=== PATIENT | male | born 1950 | race Caucasian/White ===

== ENCOUNTER → 2018-04-26 08:33 | Outpatient (CLI) | payer BC, MEDICARE, SELFPAY ==
[2018-04-27 18:06] LABS: PSA, Free 5.02 ng/mL; Prostate Specific Ag 35.7 ng/mL (0.0-4.0)
== END ==
PROVIDERS: Visit Provider Family Medicine
DX: Z85.46 Personal history of malignant neoplasm of prostate (principal); Z12.5 Encounter for screening for malignant neoplasm of prostate
CPT/HCPCS: 36415; 84153; 84154

== ENCOUNTER → 2018-08-08 10:22 | Outpatient (CLI) | payer MEDICARE, SELFPAY ==
--- NOTE | 2018-08-08 10:37 | XR_ITS ---
EXAM: XR cervical spine 5V HISTORY: ITS.REASON: CERVICALGIA ORDERING PHYSICIAN: Lucia Payan PATIENT AGE: 68 years COMPARISON: None FINDINGS: Normal alignment. No fracture or dislocation. Degenerative disc disease is present at C5-C6 and C6-C7. There is mild foraminal narrowing C5-C6 on the left with mild uncovertebral hypertrophy. No prevertebral soft tissue swelling or other significant anomaly. IMPRESSION: Degenerative disc disease C5-C6 and C6-C7 with left-sided foraminal narrowing at C5-C6
--- NOTE | 2018-08-08 10:37 | XR_ITS ---
XR ribs RT min 3V w CXR1V HISTORY: ITS.REASON: RT RIB PAIN ORDERING PHYSICIAN: Lucia Payan PATIENT AGE: 68 years Comparison: None FINDINGS: A frontal view of the chest shows no acute finding. There is some increased density over the anterior aspect of the right fourth rib. Could be due to a healing fracture versus sclerotic rib lesion. No displaced fractures are evident. No other significant anomalies are apparent. IMPRESSION: Increased density over the right fourth rib anteriorly which could be due to healing fracture or sclerotic lesion of the rib. Consider CT for further evaluation.
[2018-08-08 11:35] LABS: Basophils % 0.2 % (0.1-2.0); Eosinophils % 0.5 % (0.1-12.0); Hematocrit 39.6 % (42.0-52.0); Hemoglobin 12.7 g/dL (14.1-18.0); Lymphocytes # 0.9 K/mm3 (0.7-4.5); Lymphocytes % 15.3 % (10-50); Mean Corpuscular HGB Conc 32.1 g/dL (31.8-35.4); Mean Corpuscular Hemoglobin 30.2 pg (27.0-31.2); Mean Platelet Volume 7.1 fl (7.4-10.4); Monocytes # 0.4 K/mm3 (0.1-1.0); Monocytes % 7.1 % (1.7-9.3); Neutrophils # 4.4 K/mm3 (1.8-7.8); Neutrophils % 76.9 % (37.0-80.0); Platelet Count 293 K/mm3 (142-424); Red Blood Count 4.21 M/mm3 (4.60-6.20); Red Cell Distribution Width 14.2 % (11.5-17.5); White Blood Count 5.7 K/mm3 (4.8-10.8)
[2018-08-08 13:12] LABS: Alanine Aminotransferase 19 U/L (12-78); Albumin Level 3.1 gm/dL (3.4-5.0); Alkaline Phosphatase 317 U/L (46-116); Aspartate Amino Transferase 26 U/L (15-37); Bilirubin,Direct 0.2 mg/dL (0.0-0.2); Bilirubin,Indirect 0.3 mg/dL (0.0-0.9); Bilirubin,Total 0.5 mg/dL (0.2-1.0); Total Protein,Serum 6.6 gm/dL (6.4-8.2)
== END ==
LOC: LAB 10:23 → RAD 10:35
PROVIDERS: PCP Nurse Practitioner Family; Visit Provider Nurse Practitioner Family
DX: R74.8 Abnormal levels of other serum enzymes (principal); M54.2 Cervicalgia; M43.6 Torticollis; R07.81 Pleurodynia
CPT/HCPCS: 36415; 71101; 72050; 80076; 85025

== ENCOUNTER → 2018-08-16 09:00 | Outpatient (CLI) | payer MEDICARE, SELFPAY ==
[2018-08-16 09:18] LABS: Blood Urea Nitrogen 15 mg/dL (7-18); Creatinine,Serum 0.64 mg/dL (0.70-1.30); Estimated Glomerular Filt Rate 125 ml/min (>60); GFR (African American) 151 ML/MIN (>60)
--- NOTE | 2018-08-16 09:28 | CT_ITS ---
CT chest wo/w con INDICATION: Right anterior rib pain for 3 weeks, question abnormal right fourth rib on recent plain films ITS.REASON: RIB LESION ORDERING PHYSICIAN: Francois Aguilar MD PATIENT AGE: 68 years COMPARISON: Rt. Ribs 08-08-2018 TECHNIQUE: Axial images obtained with sagittal and coronal reformats. All CT scans at the facility use one or more dose reduction, viz: automated exposure control, ma/kV adjustment per patient size (including targeted exams where dose is matched to indication, i.e. head), or iterative reconstruction technique. FINDINGS: Initially noncontrast scanning was performed showing mild subtle sclerotic change of the anterior aspect of the right fourth rib with some tiny interior cystic components. There may be some subtle expansion of this portion of the rib. Remaining ribs appear intact. There are few scattered areas of post inflammatory scarring in both upper lobes. Cardiac size is normal. There is no abnormal superior mediastinal or hilar lymphadenopathy. There is no pleural fluid. Bone windows multiple combines cystic and sclerotic foci within the thoracic vertebrae. T12 and T8 almost diffuse involvement. T5 and T6 show cystic and sclerotic foci. There is no paraspinal mass. IMPRESSION: Curious findings involving the right fourth rib anteriorly and multiple thoracic vertebrae and fibrous dysplasia is a consideration but somewhat unusual Paget's disease could give this appearance as well. Suggest alkaline phosphatase level be checked along with follow-up bone scan for additional evaluation
== END ==
PROVIDERS: Visit Provider Family Medicine
DX: R07.81 Pleurodynia (principal)
CPT/HCPCS: 36415; 71270; 82565; 84520; Q9967

== ENCOUNTER → 2018-08-27 09:12 | Outpatient (CLI) | payer MEDICARE, SELFPAY ==
--- NOTE | 2018-08-27 | XR_ITS ---
XR shoulder LT min 2V HISTORY: Metastatic disease, lesion of the left humeral neck on bone scan. ITS.REASON: HOT SPOT ON BONE SCAN ORDERING PHYSICIAN: Lucia Payan PATIENT AGE: 68 years Comparison: None FINDINGS: Left shoulder radiograph performed to assess for any areas that may be predisposed to pathological fracture. There is vague decreased density involving the proximal aspect of the humerus corresponding to increased activity on the bone scan consistent with a lytic lesion measuring 2.3 x 2.8 cm. There are osteoarthritic changes of the acromioclavicular joint. IMPRESSION: Vague lytic lesion of the proximal metaphysis of the left humerus at 2.8 x 2.3 cm
--- NOTE | 2018-08-27 | XR_ITS ---
XR shoulder RT min 2V HISTORY: Abnormal bone scan showing focal increased activity in the humeral neck ITS.REASON: HOT SPOT ON BONE SCAN ORDERING PHYSICIAN: Lucia Payan PATIENT AGE: 68 years Comparison: None FINDINGS: There are mild osteoarthritic changes of the glenohumeral joint. A small well-circumscribed lucency is present in the humeral head at 6 mm. The abnormal activity on the bone scan is in the scapula and also in the neck of the humerus. No significant lytic lesions evident at these areas. No suspected areas of eminent pathologic fracture. IMPRESSION: Mild osteoarthritic changes of the acromioclavicular joint and glenohumeral joint with no radiographic evidence of lytic lesions or eminent pathological fractures of the humeral neck
--- NOTE | 2018-08-27 09:21 | NM_ITS ---
NM bone scan whole body CLINICAL INDICATION: Rib and spine lesions on recent chest CT, history of prostate cancer, low back pain ITS.REASON: RIB LESION ORDERING PHYSICIAN: Lucia Payan PATIENT AGE: 68 years Comparison: 08/16/2018 DOSE: 25.7 mCi technetium MDP FINDINGS: Innumerable foci of increased activity are present involving the ribs, thoracic, cervical, and lumbar spine, pelvis on both sides, proximal humeri, sternum, skull, mandible, and proximal femurs and mid shaft right femur and system with diffuse skeletal metastatic disease. IMPRESSION: Diffuse skeletal metastasis
== END ==
PROVIDERS: PCP Nurse Practitioner Family; Visit Provider Nurse Practitioner Family
DX: M89.9 Disorder of bone, unspecified (principal)
CPT/HCPCS: 73030; 78306; A9503

== ENCOUNTER → 2018-09-02 15:00 | Outpatient (CLI) | payer MEDICARE, SELFPAY ==
[2018-09-02 16:54] LABS: Blood Urea Nitrogen 10 mg/dL (7-18); Creatinine,Serum 0.61 mg/dL (0.70-1.30); Estimated Glomerular Filt Rate 132 ml/min (>60); GFR (African American) 160 ML/MIN (>60)
== END ==
PROVIDERS: Visit Provider Nurse Practitioner Family
DX: R74.8 Abnormal levels of other serum enzymes (principal); I10 Essential (primary) hypertension
CPT/HCPCS: 36415; 82565; 84520

== ENCOUNTER → 2018-09-03 08:47 | Outpatient (CLI) | payer MEDICARE, SELFPAY ==
--- NOTE | 2018-09-03 08:53 | CT_ITS ---
CT abdomen pelvis w con CLINICAL INDICATION: Elevated alkaline phosphatase, right-sided rib pain, skeletal metastasis noted on recent bone scan ITS.REASON: RT SIDE RIB PAIN, ELEVATED ALKALINE PHOSPHATASE LEVEL ORDERING PHYSICIAN: Lucia Payan PATIENT AGE: 68 years COMPARISON: None TECHNIQUE: Axial images obtained with sagittal and coronal reformats. All CT scans at the facility use one or more dose reduction, viz: automated exposure control, ma/kV adjustment per patient size (including targeted exams where dose is matched to indication, i.e. head), or iterative reconstruction technique. PROCEDURE: Oral Contrast: Redicat IV Contrast: 75 mL of Isovue-370. FINDINGS: There are faint nodular opacities in the lower lobes similar to the previous CT scan of the chest of 08/16/2018 which are nonspecific. The liver, gallbladder, spleen, adrenal glands, and pancreas have an unremarkable appearance. There is thickening of the wall stomach at the fundal area. This is felt to be due to nondistention not having a similar appearance on 08/16/2018 No renal mass, renal calculus, or ureteral calculus. No hydronephrosis. No evidence of appendicitis, intestinal obstruction, free air, or diverticulitis. Urinary bladder collapsed with somewhat thickened wall which may be due to the collapsed state. No pelvic mass or abnormal fluid collection is evident. There is a diffuse mottled appearance of the ilium on both sides superiorly left more extensive than the right. This also involves the L1 and L2 vertebral body and to a lesser degree the L3 vertebral body with a Schmorl's node along the superior endplate of L3. These findings are consistent with metastatic disease. The bone scan findings show more severe involvement than the CT findings of multiple bony structures. IMPRESSION: 1. Widespread bony metastasis which have a mixed sclerotic and lytic appearance more prominent on the bone scan. 2. Otherwise negative CT abdomen. No liver renal or adrenal lesions. No retroperitoneal or pelvic adenopathy
== END ==
PROVIDERS: PCP Nurse Practitioner Family; Visit Provider Nurse Practitioner Family
DX: R07.81 Pleurodynia (principal); R74.8 Abnormal levels of other serum enzymes
CPT/HCPCS: 74177; Q9967

== ENCOUNTER 2018-12-06 01:46 | Observation (INO) ==
[2018-12-06 02:04] LABS: Basophils % 0.2 % (0.1-2.0); Eosinophils # 0.1 K/mm3 (0.0-0.4); Eosinophils % 1.4 % (0.1-12.0); Hematocrit 31.8 % (42.0-52.0); Hemoglobin 10.3 g/dL (14.1-18.0); Lymphocytes # 0.9 K/mm3 (0.7-4.5); Lymphocytes % 15.1 % (10-50); Mean Corpuscular HGB Conc 32.4 g/dL (31.8-35.4); Mean Corpuscular Hemoglobin 29.4 pg (27.0-31.2); Mean Corpuscular Volume 90.8 fl (80-94); Mean Platelet Volume 6.5 fl (7.4-10.4); Monocytes # 0.4 K/mm3 (0.1-1.0); Monocytes % 6.8 % (1.7-9.3); Neutrophils # 4.3 K/mm3 (1.8-7.8); Neutrophils % 76.5 % (37.0-80.0); Platelet Count 333 K/mm3 (142-424); Red Cell Distribution Width 17.9 % (11.5-17.5); White Blood Count 5.7 K/mm3 (4.8-10.8)
[2018-12-06 02:18] LABS: Anion Gap 15.8 mEq/L (5-15); Blood Urea Nitrogen 15 mg/dL (7-18); Calcium 9.3 mg/dL (8.5-10.1); Carbon Dioxide 27 mmol/L (21.0-32.0); Chloride 96 mmol/L (98-107); Glucose 105 mg/dL (74-106); Potassium 3.8 mmoL/L (3.5-5.1); Sodium 135 mmol/L (136-145)
--- NOTE | 2018-12-06 02:21 | Emergency Department Note ---
ED Disposition Clinical Impression: Prostate cancer metastatic to bone Chest pain Qualifiers: Chest pain type: precordial pain Qualified Code(s): R07.2 - Precordial pain Fracture of rib Qualifiers: Encounter type: initial encounter Rib fracture type: single rib Fracture type: closed Laterality: left Qualified Code(s): S22.32XA - Fracture of one rib, left side, initial encounter for closed fracture Disposition: Admitted as Observation Condition on Discharge: Fair Referrals: Provider,Referral, [Referring] - - Critical Care Critical Care Time: No Attestation: On 12/06/18, the high probability of a clinically significant, sudden or life threatening deterioration of the following system(s) required my full and direct attention, intervention and personal management. The time I documented below is in addition to time spent performing reported procedures but includes the following listed in this critical care notation. Medical Decision Making - Medical Records Medical records reviewed: Yes: I reviewed the patient's medical records. - Syed Inquiry Pt receiving controlled substance: No Vital Signs: 12/06/18 01:47 12/06/18 02:16 12/06/18 03:17 Temperature 98 F Temperature Source Oral Pulse Rate [Right Radial] 85 84 78 Respiratory Rate 18 16 Blood Pressure [Right Arm] 109/69 L 94/57 L 89/53 L Blood Pressure Mean [Right Arm] 82 69 65 Blood Pressure Position [Right Arm] Sitting 02 Sat by Pulse Oximetry 98 100 98 Oxygen Delivery Method Room Air Nasal Cannula Room Air Oxygen Flow Rate (LPM) 2 - Lab Data Lab results reviewed: Yes: I reviewed the patient's lab results. Lab Results 12/06/18 01:52: WBC 5.7, RBC 3.50 L, Hgb 10.3 L, Hct 31.8 L, MCV 90.8, MCH 29.4, MCHC 32.4, RDW 17.9 H, Plt Count 333, MPV 6.5 L, Neut % (Auto) 76.5, Lymph % (Auto) 15.1, [place] % (Auto) 6.8, Eos % (Auto) 1.4, Baso % (Auto) 0.2, Neut # (Auto) 4.3, Lymph # (Auto) 0.9, [place] # (Auto) 0.4, Eos # (Auto) 0.1, Baso # (Auto) 0.0 12/06/18 01:52: Sodium 135 L, Potassium 3.8, Chloride 96 L, Carbon Dioxide 27, Anion Gap 15.8 H, BUN 15, Creatinine 0.58 L, Estimated Creat Clear 55, Estimated GFR 140, Est GFR ( Amer) 169, Glucose 105, Calcium 9.3, Troponin I < 0.02 Result diagrams: 12/06/18 01:52 12/06/18 01:52 Orders (Tests/Meds): ED MEDICATIONS Generic Name Dose Route Start Last Admin Trade Name Freq PRN Reason Stop Dose Admin Sodium Chloride 1,000 mls @ 999 mls/hr 12/06/18 02:30 12/06/18 03:17 Sod Chlor 0.9% 1000ml Bag IV 12/06/18 03:30 999 mls/hr .Q1H1M LANDON Administration Sodium Chloride 10 ml 12/06/18 01:53 Saline Flush 10ml Syringe IV 01/05/19 01:52 NEEDED PRN Maintain IV Site Discontinued Medications Generic Name Dose Route Start Last Admin Trade Name Freq PRN Reason Stop Dose Admin Aspirin 324 mg 12/06/18 01:53 12/06/18 01:58 Aspirin 81mg Chewable Tablet PO 12/06/18 01:54 324 mg ONCE ONE Administration Ioversol 70 ml 12/06/18 03:26 12/06/18 03:28 Rad-Optiray 350 100ml Vial IV 12/06/18 03:27 70 ml ONCE ONE Administration Sodium Chloride 10 ml 12/06/18 03:26 12/06/18 03:28 Rad-Saline Flush 10ml Syringe IV 12/06/18 03:27 10 ml ONCE ONE Administration Sodium Chloride 40 ml 12/06/18 03:26 12/06/18 03:28 Rad-Ns 50ml Vial IV 12/06/18 03:27 40 ml ONCE ONE Administration ORDERS Category Date Time Status CTA Chest [CT angio chest] Stat Cat Scan 12/06/18 02:20 Taken XR chest portable Stat Exams 12/06/18 01:53 Taken - Radiology Data #1 Image(s): Chest Image Reviewed: Yes I reviewed the patient's radiology image Preliminary Findings: Abnormal (see report) - CT Data CT Scan: Chest Time Received: 03:[address] Reviewed: Yes: I have viewed the radiologist's interpretation Preliminary Findings: Abnormal (no pul emboli) - ECG Data Tracing #1 Normal Sinus Rhythm: Yes Ischemic changes: non-specific ST-T wave changes - Physician Consults Physician Consulted: genevieve Reason -: Admission Chest Pain HPI - General Chief Complaint: Chest Pain Stated Complaint: Chest Pain Time Seen by Provider: 12/06/18 01:50 Mode of Arrival: Ambulatory Limitations: No Limitations Description of Symptoms (Recalled from ER Triage Doc. by RN): pt c/o chest pain that starte approx 20 mins prior to arrival , reports he was "almost asleep when he developed a sharp pain in the left side of his chest" that has not subsided, reports associated shortness of breath, reports that it "hurts to breath deep" - History of Present Illness HPI narrative: sudden onset of lt chest pain assoc with sob - hx of met prostate cancer - wells score -4 MD complaint: chest pain indicative of cardiac Onset (ago): hour(s) Duration: constant Activity at onset: during rest, awoke with symptoms Pain location: left chest Severity: moderate Risk Factors for CAD: Family Hx of CAD Treatments prior to or on arrival for Cardiac Chest Pain: none - SOUTH Score for Non-Stemi Age of Patient: 60-69 years old Heart Rate: 70-89 bpm Systolic Blood Pressure: 100-119 mmHg Serum Creatinine: 0.40-0.79 mg/dl CHF [place] Class: I-No CHF Other Risk Factors: None Non-Stemi Risk Score: 114 - Related Data Home Medications Medication Instructions Recorded Confirmed Enoxaparin Sodium [Lovenox 100 mg SQ DAILY 12/06/18 12/06/18 100mg/mL syringe] Tramadol HCl [Tramadol 50mg 50 mg PO Q6 PRN 12/06/18 12/06/18 Tab] Allergies Allergy/AdvReac Type Severity Reaction Status Date / Time No Known Allergies Allergy Verified 12/06/18 01:54 [facility] History - Hepatitis A Screen Drug use history?: No High risk sexual behaviors?: No History of sexually transmitted infection?: No Currently employed?: No Childcare worker?: No Do you have indoor plumbing?: Yes Do you have electricity?: Yes Attestation statement:: This patient has been screened for Hepatitis A risk factors. I have reviewed the patient's past medical history: Yes - Social History Alcohol Intake: never Occupational Status: other - Psychiatric History Expresses thoughts of harming self/others: None Suicide Plan Description: No Plan ROS Obtained: Yes All systems reviewed & no additional complaints - Constitutional Constitutional: Denies fever(s), Reports weakness - Eyes Eyes: Denies change in vision - ENT Ears, Nose, Mouth, and Throat: Denies sore throat - Cardiovascular Cardiovascular: Reports chest pain, Reports dyspnea - Respiratory Respiratory: No cough, Yes dyspnea, No coughing up blood - Gastrointestinal Gastrointestingal: Denies: abdominal pain - Genitourinary Male Genitourinary: Denies hematuria - Musculoskeletal Musculoskeletal: Reports joint pain, Denies joint swelling - Integumentary/Breasts Skin/Breast: Denies rash - Neurologic Neurologic: Denies seizure-like activity Physical Exam - General General appearance: in no apparent distress, cachectic - Head Head exam: normocephalic - Eye Eye exam: Present: PERRL, EOMI. Absent: scleral icterus - ENT ENT exam: Present: mucous membranes dry - Neck Neck exam: Present: trachea midline - Respiratory Respiratory exam: Present: other (dec bs bilat). Absent: respiratory distress - Cardiovascular Cardiovascular exam: Present: regular rate, systolic murmur, +S4 - Abdominal Exam Abdominal exam: Present: soft - Extremities Exam Extremities exam: Absent: calf tenderness - Neurological Exam Neurological exam: Present: alert, oriented X3, CN II-XII intact - Psychiatric Psychiatric exam: Present: normal affect - Skin Skin exam: Absent: rash
--- NOTE | 2018-12-06 07:25 | H&P/Discharge Summary ---
General - General Admission date:: 12/06/18 Discharge date: 12/06/18 *Admission Date: 12/06/18 *Chief complaint: Left-sided chest pain *History of present illness: 68-year-old male with metastatic prostate cancer presented to the emergency department after developing left-sided burning chest discomfort yesterday evening. She admits he has been coughing quite a bit over the last 3-4 weeks. He denies any single episode of cough triggering his pain. However once his pain began he could not get comfortable. Pain would worsen with deep breathing, cough, movements. When pain was unrelenting he presented to the emergency department. In the ER there was concern that he had pulmonary embolism. First troponin was negative. Chest CT showed multiple areas within the lung that could be metastatic lesions versus an infectious process. She was admitted for rule out of DC [facility] History I have reviewed the patient's past medical history: Yes Medical History: Reports:: Cancer (Prostate cancer with metastases to bone and likely lung) Denies:: Diabetes Mellitus Type 1, Diabetes Mellitus Type 2, MRSA *Have you ever received a pneumonia vaccine?: No *Have you received a flu vaccine this season?: No Other Surgeries: Yes: Colonoscopy Amputation: No - *Social History Educational Level: Attended High School Alcohol Intake: never *Occupational Status:: other Housing: house *Travel in the last 8 weeks: None - Psychiatric History Expresses thoughts of harming self/others: None Suicide Plan Description: No Plan Family Hx:: Non-contributory Review of Systems - Review of Systems Review of systems:: pertinent systems reviewed and negative unless documented below - Constitutional Reports anorexia, Reports lack of energy, Denies body ache(s), Denies chills, Denies fever(s) - *Cardiovascular Reports chest pain (Musculoskeletal in nature) - *Respiratory Reports cough, Denies change in phlegm color, Denies chest congestion, Denies shortness of breath - *Neurologic Reports weakness, Denies seizure-like activity Exam Vital signs and Labs for Last 24 Hours: Temp Pulse Resp BP Pulse Ox 98.7 F 70 16 100/57 L 98 12/06/18 04:20 12/06/18 04:47 12/06/18 04:20 12/06/18 04:20 12/06/18 04:20 Laboratory Results - last 24 hr 12/06/18 01:52: WBC 5.7, RBC 3.50 L, Hgb 10.3 L, Hct 31.8 L, MCV 90.8, MCH 29.4, MCHC 32.4, RDW 17.9 H, Plt Count 333, MPV 6.5 L, Neut % (Auto) 76.5, Lymph % (Auto) 15.1, [place] % (Auto) 6.8, Eos % (Auto) 1.4, Baso % (Auto) 0.2, Neut # (Auto) 4.3, Lymph # (Auto) 0.9, [place] # (Auto) 0.4, Eos # (Auto) 0.1, Baso # (Auto) 0.0 12/06/18 01:52: Sodium 135 L, Potassium 3.8, Chloride 96 L, Carbon Dioxide 27, Anion Gap 15.8 H, BUN 15, Creatinine 0.58 L, Estimated Creat Clear 55, Estimated GFR 140, Est GFR ( Amer) 169, Glucose 105, Calcium 9.3, Troponin I < 0.02 I & O for Last 24 hours: Intake & Output 12/03/18 12/04/18 12/05/18 12/06/18 11:59 11:59 11:59 11:59 Intake Total 800 / 800 Balance 800 / 800 Weight 120 lb 1 oz Narrative: Patient is awake and alert resting comfortably in bed. ENT exam is unremarkable. Neck is without lymphadenopathy. Lungs are clear to auscultation. Heart has a regular rate and rhythm. In the left lower rib cage along the mid axillary line patient has focal tenderness of a rib consistent with his left seventh rib fracture identified on CT scan Hospital Course Hospital Course: She was admitted for rule out of DC. However CT scan showed the presence of a pathologic fracture of the left seventh rib. This is the source of the patient's pain. It was explained to the patient that his rib fracture was causing his pain in his rib fracture was from invasion of the bone by cancer. Patient has tramadol at home. He will try to use this for pain control but will also be given Bayard 5 mg to use if that is not enough. Patient will follow-up in the office on December 09 at 9 AM. His final set of troponins was canceled as his heart is not the source of his chest pain Results Labs on day of discharge: Labs from last 24 hours 12/06/18 12/06/18 01:52 01:52 WBC 5.7 RBC 3.50 L Hgb 10.3 L Hct 31.8 L MCV 90.8 MCH 29.4 MCHC 32.4 RDW 17.9 H Plt Count 333 MPV 6.5 L Neut % (Auto) 76.5 Lymph % (Auto) 15.1 [place] % (Auto) 6.8 Eos % (Auto) 1.4 Baso % (Auto) 0.2 Neut # (Auto) 4.3 Lymph # (Auto) 0.9 [place] # (Auto) 0.4 Eos # (Auto) 0.1 Baso # (Auto) 0.0 Sodium 135 L Potassium 3.8 Chloride 96 L Carbon Dioxide 27 Anion Gap 15.8 H BUN 15 Creatinine 0.58 L Estimated Creat Clear 55 Estimated GFR 140 Est GFR ( Amer) 169 Glucose 105 Calcium 9.3 Troponin I < 0.02 DS: Diagnosis - Discharge Diagnosis (1) Fracture of rib Status: Acute (2) Prostate cancer metastatic to bone Status: Acute Discharge Medications - Medications for Discharge Home Medication List at Discharge: No Action Enoxaparin Sodium [Lovenox 100mg/mL syringe] 100 mg SQ DAILY Tramadol HCl [Tramadol 50mg Tab] 50 mg PO Q6 PRN PRN Reason: Moderate Pain Disposition Disposition: Home, Self-Care
--- NOTE | 2018-12-06 07:32 | Pharmacy Consult Notes ---
[facility] Pharmacy VTE Monitoring - Patient Demographics Admission date: 12/05/18 Report Date: 12/06/18 Time: 07:32 Allergies/Adverse Reactions: Patient Allergies No Known Allergies Allergy (Verified 12/06/18 01:54) Height: 1.68 m Weight: 54.459 kg Patient Problems: Current Active Problems (This Medical Record has been edited. Action required.) Chest pain (Acute) Prostate cancer metastatic to bone (Acute) Fracture of rib (Acute) - VTE Risk Labs: VTE Related Lab Results Hgb 10.3 g/dL (14.1-18.0) L 12/06/18 01:52 Hct 31.8 % (42.0-52.0) L 12/06/18 01:52 Plt Count 333 K/mm3 (142-424) 12/06/18 01:52 BUN 15 mg/dL (7-18) 12/06/18 01:52 Creatinine 0.58 mg/dL (0.70-1.30) L 12/06/18 01:52 Estimated Creat Clear 55 mL/min (50-200) 12/06/18 01:52 Was VTE Risk Assessment Performed: No VTE Risk Level: Low Risk Clinical Trial Participant: No - Prophylaxis VTE Prophylaxis Ordered?: Yes Types of VTE Prophylaxis: Pharmacological Pharmacologic Type: Enoxaparin
== END 2018-12-06 08:59 | disposition home or self-care (01) ==
LOC: ER 01:46 → 2ND 01:46
PROVIDERS: ADMIT Family Medicine; ATTEND Family Medicine
CPT/HCPCS: 71010; 71045; 71275; 80048; 84484; 85025; 93005; 96365; 96375; 99285; G0378; J2405; Q9967

== ENCOUNTER → 2019-11-04 10:15 | Outpatient (CLI) | payer MEDICARE, SELFPAY ==
[2019-11-04 10:51] LABS: Basophils % 0.4 % (0.1-2.0); Eosinophils # 0.1 K/mm3 (0.0-0.4); Hematocrit 33.8 % (42.0-52.0); Hemoglobin 10.7 g/dL (14.1-18.0); Lymphocytes # 0.8 K/mm3 (0.7-4.5); Lymphocytes % 15.6 % (10-50); Mean Corpuscular HGB Conc 31.6 g/dL (31.8-35.4); Mean Corpuscular Hemoglobin 29.2 pg (27.0-31.2); Mean Corpuscular Volume 92.2 fl (80-94); Mean Platelet Volume 7.3 fl (7.4-10.4); Monocytes # 0.3 K/mm3 (0.1-1.0); Monocytes % 6.5 % (1.7-9.3); Neutrophils # 3.7 K/mm3 (1.8-7.8); Neutrophils % 76.6 % (37.0-80.0); Platelet Count 411 K/mm3 (142-424); Red Blood Count 3.67 M/mm3 (4.60-6.20); White Blood Count 4.8 K/mm3 (4.8-10.8)
[2019-11-04 12:11] LABS: Alanine Aminotransferase 12 U/L (21-72); Albumin Level 2.7 g/dL (3.4-5.0); Albumin/Globulin Ratio 0.7 (1.1-1.8); Alkaline Phosphatase 197 U/L (46-116); Anion Gap 11.8 mEq/L (5-15); Aspartate Amino Transferase 18 U/L (15-37); Bilirubin,Total 0.3 mg/dL (0.2-1.0); Blood Urea Nitrogen 10 mg/dL (7-18); Calcium 9.1 mg/dL (8.5-10.1); Carbon Dioxide 31 mmol/L (21.0-32.0); Chloride 100 mmol/L (98-107); Estimated Glomerular Filt Rate 134 ml/min (>60); GFR (African American) 162 ML/MIN (>60); Globulin 3.7 gm/dl (1.3-3.2); Glucose 111 mg/dL (74-106); Potassium 4.8 mmoL/L (3.5-5.1); Sodium 138 mmol/L (137-145); Total Protein,Serum 6.4 g/dL (6.4-8.2)
[2019-11-04 12:18] LABS: Prostate Specific Ag, Diagnost 188.56 ng/mL (0.0-4.0)
== END ==
PROVIDERS: Visit Provider Radiology Radiation Oncology
DX: C61 Malignant neoplasm of prostate (principal); C79.51 Secondary malignant neoplasm of bone
CPT/HCPCS: 36415; 80053; 84153; 85025

== ENCOUNTER → 2019-12-03 10:57 | Outpatient (CLI) | payer MEDICARE, SELFPAY ==
[2019-12-03 11:28] LABS: Basophils % 0.2 % (0.1-2.0); Eosinophils % 0.4 % (0.1-12.0); Hemoglobin 10.3 g/dL (14.1-18.0); Lymphocytes # 0.5 K/mm3 (0.7-4.5); Lymphocytes % 6.1 % (10-50); Mean Corpuscular HGB Conc 32.3 g/dL (31.8-35.4); Mean Corpuscular Volume 89.7 fl (80-94); Mean Platelet Volume 7.3 fl (7.4-10.4); Monocytes # 0.6 K/mm3 (0.1-1.0); Monocytes % 7.3 % (1.7-9.3); Neutrophils # 7.4 K/mm3 (1.8-7.8); Platelet Count 334 K/mm3 (142-424); Red Blood Count 3.56 M/mm3 (4.60-6.20); Red Cell Distribution Width 17.2 % (11.5-17.5); White Blood Count 8.7 K/mm3 (4.8-10.8)
[2019-12-03 11:33] LABS: Alanine Aminotransferase 17 U/L (12-78); Albumin Level 3.8 g/dl (3.5-5.0); Albumin/Globulin Ratio 1.2 (1.1-1.8); Alkaline Phosphatase 194 U/L (38-126); Anion Gap 17.4 mEq/L (5-15); Aspartate Amino Transferase 49 U/L (17-59); Bilirubin,Total 0.3 mg/dl (0.2-1.3); Blood Urea Nitrogen 21 mg/dl (9-20); Calcium 9.6 mg/dl (8.4-10.2); Carbon Dioxide 29 mmol/L (22.0-30.0); Chloride 91 mmol/L (98-107); Estimated Glomerular Filt Rate 134 ml/min (>60); GFR (African American) 162 ML/MIN (>60); Globulin 3.3 g/dL (1.3-3.2); Glucose 133 mg/dl (74-100); MANUAL DIFFERENTIAL MANUAL DIFFERENTIAL (MANUAL DIFF); Potassium 4.4 mmoL/L (3.5-5.1); Sodium 133 mmol/L (136-145); Total Protein,Serum 7.1 g/dl (6.3-8.2)
[2019-12-03 11:38] LABS: Eosinophils % 1 % (0-3); Lymphocytes % 6 % (10-50); Monocytes % 9 % (2-9); Neutrophils % 84 % (42-76); Platelet Estimate Moderate Decrease; Total Cells Counted 100
[2019-12-03 12:45] LABS: Prostate Specific Ag, Diagnost 152 ng/ml (0.0-4.0)
== END ==
PROVIDERS: Visit Provider Radiology Radiation Oncology
DX: C61 Malignant neoplasm of prostate (principal); C79.51 Secondary malignant neoplasm of bone
CPT/HCPCS: 36415; 80053; 84153; 85007; 85025

== ENCOUNTER → 2019-12-30 14:07 | Outpatient (CLI) | payer MEDICARE, SELFPAY ==
[2019-12-30 15:11] LABS: Basophils % 0.5 % (0.1-2.0); Eosinophils # 0.1 K/mm3 (0.0-0.4); Eosinophils % 1.8 % (0.1-12.0); Hematocrit 28.1 % (42.0-52.0); Lymphocytes # 0.6 K/mm3 (0.7-4.5); Lymphocytes % 19.3 % (10-50); Mean Corpuscular Hemoglobin 28.3 pg (27.0-31.2); Mean Corpuscular Volume 88.5 fl (80-94); Mean Platelet Volume 7.6 fl (7.4-10.4); Monocytes # 0.3 K/mm3 (0.1-1.0); Monocytes % 8.1 % (1.7-9.3); Neutrophils # 2.2 K/mm3 (1.8-7.8); Neutrophils % 70.3 % (37.0-80.0); Platelet Count 365 K/mm3 (142-424); Red Blood Count 3.18 M/mm3 (4.60-6.20); Red Cell Distribution Width 18.5 % (11.5-17.5); White Blood Count 3.1 K/mm3 (4.8-10.8)
[2019-12-30 15:30] LABS: Chloride 102 mmol/L (98-107); Potassium 4.1 mmoL/L (3.5-5.1); Sodium 139 mmol/L (136-145)
[2019-12-30 15:33] LABS: Alanine Aminotransferase 11 U/L (12-78); Albumin Level 3.4 g/dl (3.5-5.0); Albumin/Globulin Ratio 1.3 (1.1-1.8); Alkaline Phosphatase 155 U/L (38-126); Anion Gap 13.1 mEq/L (5-15); Aspartate Amino Transferase 21 U/L (17-59); Blood Urea Nitrogen 14 mg/dl (9-20); Calcium 9.4 mg/dl (8.4-10.2); Carbon Dioxide 28 mmol/L (22.0-30.0); Estimated Glomerular Filt Rate 214 ml/min (>60); GFR (African American) 259 ML/MIN (>60); Globulin 2.6 g/dL (1.3-3.2); Glucose 113 mg/dl (74-100)
[2019-12-30 15:44] LABS: Bilirubin,Total 0.1 mg/dl (0.2-1.3)
[2019-12-30 19:19] LABS: Prostate Specific Ag, Diagnost 177 ng/ml (0.0-4.0)
== END ==
PROVIDERS: Visit Provider Radiology Radiation Oncology
DX: C61 Malignant neoplasm of prostate (principal); C79.51 Secondary malignant neoplasm of bone
CPT/HCPCS: 36415; 80053; 84153; 85025

== ENCOUNTER 2020-01-01 18:03 | Outpatient (CLI) | payer MEDICARE, SELFPAY | END 2020-01-01 18:55 | disposition home or self-care (01) | PROVIDERS: PCP Family Medicine; Visit Provider Family Medicine | DX: C61 Malignant neoplasm of prostate (principal); C79.51 Secondary malignant neoplasm of bone; R33.9 Retention of urine, unspecified | CPT/HCPCS: G0463 ==

== ENCOUNTER → 2020-01-14 09:53 | Outpatient (CLI) | payer MEDICARE, SELFPAY ==
[2020-01-14 11:24] LABS: Basophils # 0.1 K/mm3 (0-0.2); Basophils % 1.3 % (0.1-2.0); Eosinophils % 0.4 % (0.1-12.0); Hematocrit 27.3 % (42.0-52.0); Hemoglobin 8.7 g/dL (14.1-18.0); Lymphocytes # 0.4 K/mm3 (0.7-4.5); Lymphocytes % 6.4 % (10-50); Mean Corpuscular HGB Conc 31.9 g/dL (31.8-35.4); Mean Corpuscular Hemoglobin 28.6 pg (27.0-31.2); Mean Corpuscular Volume 89.6 fl (80-94); Mean Platelet Volume 8.1 fl (7.4-10.4); Monocytes # 0.3 K/mm3 (0.1-1.0); Monocytes % 5.5 % (1.7-9.3); Neutrophils # 5.2 K/mm3 (1.8-7.8); Neutrophils % 86.5 % (37.0-80.0); Platelet Count 394 K/mm3 (142-424); Red Blood Count 3.05 M/mm3 (4.60-6.20)
[2020-01-14 11:26] LABS: MANUAL DIFFERENTIAL MANUAL DIFFERENTIAL (MANUAL DIFF)
[2020-01-14 12:55] LABS: Eosinophils % 1 % (0-3); Lymphocytes % 7 % (10-50); Monocytes % 5 % (2-9); Neutrophils % 87 % (42-76); Total Cells Counted 100
[2020-01-14 12:58] LABS: Platelet Estimate Normal; RBC Morphology Normal
== END ==
PROVIDERS: Visit Provider Radiology Radiation Oncology
DX: C61 Malignant neoplasm of prostate (principal); C79.51 Secondary malignant neoplasm of bone
CPT/HCPCS: 36415; 85007; 85025

== ENCOUNTER 2020-01-17 16:43 | Emergency (ER) | payer MEDICARE, SELFPAY ==
[2020-01-17 17:15] VITALS: BP 101/65; PULSE 78; RESP 16; TEMP 36.6; O2SAT 94; BMI 20.6
--- NOTE | 2020-01-17 17:26 | HMH.EDGENADL ---
ED Disposition Clinical Impression: Urinary retention Disposition: Home, Self-Care Condition on Discharge: Good Instructions: How to Care for Your Hein Catheter -- Male Additional Instructions: Follow-up with Dr. Paris Sunday. Follow-up your urine analysis results with Dr. Paris at that time. Referrals: Francois Aguilar MD [Primary Care Provider] - - Critical Care Critical Care Time: No Attestation: On 01/17/20, the high probability of a clinically significant, sudden or life threatening deterioration of the following system(s) required my full and direct attention, intervention and personal management. The time I documented below is in addition to time spent performing reported procedures but includes the following listed in this critical care notation. Medical Decision Making - Syed Inquiry Pt receiving controlled substance: No Vital Signs: 01/17/20 17:15 Temperature 98 F Temperature Source Oral Pulse Rate [Left Radial] 78 Respiratory Rate 16 Blood Pressure [Right Arm] 101/65 L Blood Pressure Mean [Right Arm] 77 Blood Pressure Position [Right Arm] Sitting 02 Sat by Pulse Oximetry 94 L Oxygen Delivery Method Room Air Orders (Tests/Meds): ED MEDICATIONS Discontinued Medications Generic Name Dose Route Start Last Admin Trade Name Freq PRN Reason Stop Dose Admin Lidocaine HCl 10 ml 01/17/20 17:30 01/17/20 17:31 Urojet Lidocaine 2% 10ml TOPICAL 01/17/20 17:31 5 ml ONCE ONE Administration ORDERS Category Date Time Status Urinalysis and Microscopic Stat Lab 01/17/20 17:28 Ordered - Reevaluation(s) Time: 17:58 Reevaluation #1: The patient insists on leaving immediately. He does not want to wait for urine analysis results. Medical Decision Narrative: PROCEDURE: CT ABDOMEN PELVIS WO CON CLINICAL INDICATION: pelvic pain History of prostate carcinoma with surgery [facility] TECHNIQUE: Axial images obtained with sagittal and coronal reformats. All CT scans at the facility use one or more dose reduction, viz: automated exposure control, ma/kV adjustment per patient size (including targeted exams where dose is matched to indication, i.e. head), or iterative reconstruction technique. FINDINGS: LOWER THORAX: No acute finding. There are new rinds of soft tissue density associated with posterior lateral bilateral 10th ribs. The soft tissue density on the right measures up to 8 millimeters and that on the left 6 millimeters consistent with bony metastatic disease with some associated soft tissue component of neoplasm or or reactive pleural thickening. There is extensive bony metastatic disease which has progressed significantly over the interval. Multiple lytic and sclerotic foci are seen throughout the spine and widespread foci are seen throughout the bony pelvis and both proximal femurs and ribs, and sternum. Endplate collapse of L3 is not significantly changed. ABDOMEN & PELVIS: The exam is limited due to no contrast administration. Multiple conglomerate loops of unopacified bowel wall limit the exam. Moderate fecal loading is noted. The liver, spleen, pancreas, adrenal glands, and kidneys show no acute finding. No intestinal obstruction or free air. No evidence of appendicitis or diverticulitis. A small amount of nonspecific free fluid is seen in the pelvis. No pelvic mass or focal inflammatory change of the pelvis. No acute bony anomalies. IMPRESSION: Progression of mixed lytic and sclerotic metastatic disease. No acute intra-abdominal/pelvic finding Exam limited due to no IV contrast administration. Dictated by: Clinton Ruby 11/11/2019 08:21 Electronically signed by Clinton Ruby in [place] 11/11/2019 08:21 General Adult HPI - General Stated complaint: catheter put in per Dr. Paris Time Seen by Provider: 01/17/20 17:26 - History of Present Illness HPI n
[2020-01-17 18:05] LABS: Microscopic, Urine URINE MICROSCOPIC (MICROSCOPIC)
[2020-01-17 18:09] LABS: Appearance,Urine CLOUDY (Clear); Bilirubin,Urine Negative (Negative); Blood, Urine TRACE-I (Negative); Color,Urine YELLOW (Yellow); Glucose,Urine (UA) Negative (Negative); Ketones,Urine Negative (Negative); Leukocyte Esterase,Urine 1+ (Negative); Nitrate,Urine POSITIVE (Negative); PH,Urine 8.5 (5.0-8.5); Protein,Urine TRACE (Negative); Urobilinogen,Urine 0.2 EU/dl (0.2)
[2020-01-17 18:11] VITALS: BP 101/68; PULSE 78; RESP 16; TEMP 36.6; O2SAT 98
[2020-01-17 18:13] LABS: Amorphous Sediment,Urine 4+ /lpf; Bacteria,Urine 2+ /lpf
--- NOTE | 2020-01-17 18:13 | PC.NURSE ---
leg bag applied. pt given d/c instructions on avendaño care and leg bag
== END 2020-01-17 18:13 | disposition home or self-care (01) ==
PROVIDERS: Emergency Provider Emergency Medicine; PCP Family Medicine
DX: N40.1 Benign prostatic hyperplasia with lower urinary tract symptoms (principal); C61 Malignant neoplasm of prostate; R33.8 Other retention of urine; C79.51 Secondary malignant neoplasm of bone
CPT/HCPCS: G0463; 81001; 87086; 87088; 87186; 99283

== ENCOUNTER → 2020-02-10 15:22 | Outpatient (CLI) | payer MEDICARE, SELFPAY ==
[2020-02-10 16:11] LABS: Basophils # 0.1 K/mm3 (0-0.2); Eosinophils % 0.3 % (0.1-12.0); Hematocrit 25.2 % (42.0-52.0); Lymphocytes % 14.5 % (10-50); Mean Corpuscular Hemoglobin 27.7 pg (27.0-31.2); Mean Corpuscular Volume 92.2 fl (80-94); Mean Platelet Volume 6.9 fl (7.4-10.4); Monocytes # 0.4 K/mm3 (0.1-1.0); Monocytes % 5.8 % (1.7-9.3); Neutrophils # 5.1 K/mm3 (1.8-7.8); Neutrophils % 78.4 % (37.0-80.0); Platelet Count 440 K/mm3 (142-424); Red Blood Count 2.73 M/mm3 (4.60-6.20); Red Cell Distribution Width 21.3 % (11.5-17.5); White Blood Count 6.5 K/mm3 (4.8-10.8)
[2020-02-10 16:47] LABS: Hemoglobin 7.6 g/dL (14.1-18.0)
[2020-02-10 17:07] LABS: Alanine Aminotransferase 12 U/L (12-78); Albumin Level 3.9 g/dl (3.5-5.0); Albumin/Globulin Ratio 1.3 (1.1-1.8); Alkaline Phosphatase 207 U/L (38-126); Anion Gap 15.4 mEq/L (5-15); Aspartate Amino Transferase 43 U/L (17-59); Bilirubin,Total 0.3 mg/dl (0.2-1.3); Blood Urea Nitrogen 20 mg/dl (9-20); Calcium 9.5 mg/dl (8.4-10.2); Carbon Dioxide 27 mmol/L (22.0-30.0); Chloride 94 mmol/L (98-107); Estimated Glomerular Filt Rate 134 ml/min (>60); GFR (African American) 162 ML/MIN (>60); Globulin 3.1 g/dL (1.3-3.2); Glucose 135 mg/dl (74-100); Potassium 4.4 mmoL/L (3.5-5.1); Sodium 132 mmol/L (136-145)
[2020-02-10 19:15] LABS: Prostate Specific Ag, Diagnost 224 ng/ml (0.0-4.0)
== END ==
PROVIDERS: Visit Provider Radiology Radiation Oncology
DX: C61 Malignant neoplasm of prostate (principal); C79.51 Secondary malignant neoplasm of bone
CPT/HCPCS: 36415; 80053; 84153; 85025

== ENCOUNTER → 2020-02-11 17:00 | Outpatient (CLI) | payer MEDICARE, SELFPAY | PROVIDERS: Visit Provider Radiology Radiation Oncology | DX: C61 Malignant neoplasm of prostate (principal); C79.51 Secondary malignant neoplasm of bone | CPT/HCPCS: 36415; 86850 ==

== ENCOUNTER 2020-02-12 08:31 | Outpatient (CLI) | payer MEDICARE, SELFPAY ==
[2020-02-12] VITALS (21 sets, daily range): BP systolic 92–126; BP diastolic 50–73; PULSE 84–90; RESP 16–18; TEMP 36.9–37.2; O2SAT 98–100; BMI 23.4
--- NOTE | 2020-02-12 14:25 | PC.NURSE ---
0950 Transfusion of 1st unit of blood initiated at this time. VSS. Resp easy/reg. Educated patient regarding s/s of blood transfusion reaction prior to initiation of transfusion/pt verbs understanding of all instructions/handout given. Lungs CTA. 1050 Pt tolerating transfusion of 1st unit of blood well with no problems noted. Denies c/o. 1150 Pt continues to tolerate 1st unit of blood well with no s/s transfusion reaction or problems noted. IV patent. present. Pt denies c/o or problems at this time. Resp easy/reg. 1159 Transfusion of 1st unit of blood complete at this time. Pt tolerated well with no s/s transfusion reaction or problems noted. VSS. present.
--- NOTE | 2020-02-12 14:33 | PC.NURSE ---
1220 Initiation of transfusion of 2nd unit of blood at this time. Lungs CTA. Pt denies c/o. Reviewed s/s of transfusion reaction/pt verbs understanding. IV patent. Skin warm/dry to touch. VSS. 1250 Pt tolerating blood well. Pt continues to deny c/o. No problems noted. 1350 Pt continues to tolerate 2nd unit of blood well. Denies c/o. No s/s transfusion reaction or problems noted. Resp easy/reg. Skin warm/dry to touch. IV patent. VSS. 1420 2nd unit of blood complete at this time. Pt denies c/o. No s/s of reaction or problems noted.
[2020-02-12 15:24] LABS: Hematocrit 26.9 % (42.0-52.0); Hemoglobin 8.9 g/dL (14.1-18.0)
== END 2020-02-12 15:25 | disposition home or self-care (01) ==
LOC: INF 08:31
PROVIDERS: Visit Provider Radiology Radiation Oncology
DX: C61 Malignant neoplasm of prostate (principal); C79.51 Secondary malignant neoplasm of bone
CPT/HCPCS: 36430; 85014; 85018; P9016

== ENCOUNTER → 2020-02-17 16:43 | Outpatient (CLI) | payer MEDICARE, SELFPAY ==
[2020-02-17 17:37] LABS: Basophils # 0.2 K/mm3 (0-0.2); Basophils % 2.7 % (0.1-2.0); Eosinophils % 0.6 % (0.1-12.0); Hematocrit 30.3 % (42.0-52.0); Hemoglobin 10.2 g/dL (14.1-18.0); Lymphocytes # 0.4 K/mm3 (0.7-4.5); Lymphocytes % 8.1 % (10-50); Mean Corpuscular HGB Conc 33.5 g/dL (31.8-35.4); Mean Corpuscular Volume 86.5 fl (80-94); Mean Platelet Volume 7.3 fl (7.4-10.4); Monocytes # 0.4 K/mm3 (0.1-1.0); Monocytes % 8.2 % (1.7-9.3); Neutrophils # 4.3 K/mm3 (1.8-7.8); Neutrophils % 80.3 % (37.0-80.0); Platelet Count 312 K/mm3 (142-424); Red Blood Count 3.51 M/mm3 (4.60-6.20); Red Cell Distribution Width 20.2 % (11.5-17.5); White Blood Count 5.3 K/mm3 (4.8-10.8)
== END ==
PROVIDERS: Visit Provider Radiology Radiation Oncology
DX: C61 Malignant neoplasm of prostate (principal); C79.51 Secondary malignant neoplasm of bone
CPT/HCPCS: 36415; 85025

== ENCOUNTER 2020-02-28 04:53 | Emergency (ER) | payer MEDICARE, SELFPAY ==
--- NOTE | 2020-02-28 | ECG_ITS ---
APPROVED REPORT Exam: Resting ECG HR:102 bpm ECG Measurements Heart Rate 102 AXES MN 154 P 70 QRSd 92 QRS -33 QT 340 T 69 QTc 443 <Conclusion> Sinus tachycardia Left axis deviation Abnormal ECG Electronically signed by : Toby Mchugh, 03/01/2020 08:58:50
[2020-02-28 04:53] VITALS: BP 99/63; PULSE 101; RESP 16; TEMP 37.8; O2SAT 98; BMI 19.2
[2020-02-28 04:59] VITALS: BMI 19.2
--- NOTE | 2020-02-28 05:00 | XR_ITS ---
PROCEDURE: XR CHEST 2V Patient Age:70Y CLINICAL HISTORY: chest pain Mid-sternal chest pain woke patient up from sleeping but nonsmoker. Does have prostate and bone cancer undergoing radiation treatments current [facility]. COMPARISON: [id number] XR ribs RT min 3V w CXR1V from 08/08/2018 CXR1VP XR chest portable from 12/06/2018 XR CHEST PORTABLE from 10/06/2019 CT ANGIO CHEST from 02/28/2020 The FINDINGS: The most striking is are the extensive blastic metastatic areas in lesions involving bones throughout the rib cage as well as shoulders and spine. This pattern most compatible with blastic metastatic prostate lesions. They have become more extensive, denser and clearly progressed since September 2019 CXR.. This blastic process involves numerous ribs most evident right mid and upper ribs. There may be some focal areas of pleural thickening associated with these rib lesions at the lateral right mid chest. Also progression of prominent lesion proximal right humerus neck particularly notable. Diffusely dense spine suggest diffuse blastic involvement of spine. This is best seen on subsequent CT . The additional areas of bone density does make it more difficult to visualize the lung tran but there does appear to be minimal diffuse infiltrate most evident right mid and upper right lung field.. Infiltrate seen at the right mid lung and extending peripherally Blunting right CP angle suggesting small pleural effusion along with adjacent atelectasis and minimal airspace disease right base lung base posteriorly. Left lung suspect subtle wispy infiltrate at left mid lung, left perihilar region. Heart is normal in size mildly tortuous aorta. Nallely and mediastinal structures otherwise unremarkable. Contrast is seen at kidneys from recent CT. Generous gas within splenic flexure of colon beneath the left hemidiaphragm IMPRESSION: 1. Extensive blastic osseous metastatic disease with marked progression since September 2019 Diffuse metastatic involvement spine, most ribs and clavicles. Also prominent osseous metastatic lesion is seen throughout proximal right humerus neck 2.. Minimal infiltrate throughout right mid and upper lung field most notable 3..Suspect scant infiltrate possible infiltrate left mid lung.-better defined by CT 4...small right pleural effusion. Atelectasis and possible minimal infiltrate posterior right lung base also noted Also areas focal of pleural thickening along lateral right chest wall likely reflect metastatic disease to the ribs/pleura-best seen on subsequent CT. Dictated by: Sukhdev Jackson MD 02/28/2020 23:02 Electronically signed by Sukhdev Jackson MD in [place] 02/28/2020 23:02
--- NOTE | 2020-02-28 05:00 | CT_ITS ---
PROCEDURE: CT ANGIO CHEST Patient Age:70Y CLINCIAL INDICATION: chest pain Mid-sternal chest pain woke up from sleeping. Patient is a nonsmoker. Has prostate and bone cancer undergoing radiation treatments current [facility]. COMPARISON: AGCHEST CT angio chest from 07/05/[address] chest wo/w con from 08/16/[address] angio chest from 12/06/2018 CT ABDOMEN PELVIS WO CON from 11/11/2019 TECHNIQUE: IV Contrast: 70ML OPTIRAY 350 Helical axial images obtained with sagittal and coronal reformats. All CT scans at the facility use one or more dose reduction, viz: automated exposure control, ma/kV adjustment per patient size (including targeted exams where dose is matched to indication, i.e. head), or iterative reconstruction technique. FINDINGS: PULMONARY ARTERIES: No pulmonary embolus evident. AORTA: No acute finding. No thoracic aortic aneurysm or dissection evident LUNG s: Overall progression of disease since November 2018 of most evident at the right lung. Findings most pronounced throughout the right lung with Additional interstitial coarsening/infiltrate, most evident RUL but also any involve superior segment RLL. Scattered small mainly peripheral infiltrate foci/ irregular scattered ground glass opacities are again seen and have overall progressed at right lung since November; some of the other densities with rather nodular character. Many of which were present previous November 2018 CT. Some of regressed but overall progression of disease and lung changes here at right lung. Some these ground-glass foci even date back to 2018 CT thus this indeed reflect a metastatic process/chronic process although I would be concerned regarding additional pneumonia on on today's study particularly with the additional interstitial infiltrate/thickening appearance. Today's pattern could reflect both progressive metastatic disease as well superimposed pneumonia (and covid should be excluded in the workup) Overall various findings have progressed in the right lung Pleural effusion has developed with adjacent atelectasis. More likely atelectasis but difficult to exclude minimal infiltrate at the posterior sulcus At left lung some of the peripheral ground-glass opacities foci have actually regressed since November the there are some new areas of nodularity 11 mm axial 51 and on axial image 46 and 47 there is a 6 mm nodule anterior to left ellyn and nodular area thickening adjacent to branching vessel lateral to left ellyn Also progression of numerous mound like pleural densities beneath involve metastatic ribs-these are most numerous in notable lateral right chest but with 1 or 2 seen on the left chest as well. Many of these areas of pleural thickening/pleural mounds seem to be associated with irregular enter cortical margin of an adjacent metastatic rib which suspect either reflecting some type reactive change or destructive process at the these metastatic rib lesions.. The HEART: Unremarkable. Normal heart size. No significant pericardial effusion. MEDIASTINAL AND HILAR STRUCTURES: No mediastinal adenopathy. No dominant adenopathy. Modest nodes at right ellyn appear stable LYMPH NODES: No enlarged lymph nodes evident. UPPER ABDOMEN: Unremarkable. IMPRESSION: No evidence of pulmonary emboli Significant progression extensive diffuse bony blastic metastatic disease. With this there is numerous areas pleural thickening/with pleural mound like appearance of beneath some of the more irregular metastatic rib lesions.. These are most numerous and evident along the right lateral chest Additional mainly interstitial infiltrate throughout the right mid and upper lung field seen today With progression of previously
[2020-02-28 05:06] LABS: Basophils % 0.3 % (0.1-2.0); Eosinophils # 0.1 K/mm3 (0.0-0.4); Eosinophils % 0.7 % (0.1-12.0); Hematocrit 28.8 % (42.0-52.0); Hemoglobin 9.5 g/dL (14.1-18.0); Lymphocytes # 0.7 K/mm3 (0.7-4.5); Lymphocytes % 9.8 % (10-50); Mean Corpuscular Hemoglobin 29.4 pg (27.0-31.2); Mean Corpuscular Volume 89.3 fl (80-94); Mean Platelet Volume 7.3 fl (7.4-10.4); Monocytes # 0.3 K/mm3 (0.1-1.0); Monocytes % 4.9 % (1.7-9.3); Neutrophils # 5.7 K/mm3 (1.8-7.8); Neutrophils % 84.3 % (37.0-80.0); Platelet Count 359 K/mm3 (142-424); Red Blood Count 3.23 M/mm3 (4.60-6.20); Red Cell Distribution Width 20.7 % (11.5-17.5); White Blood Count 6.8 K/mm3 (4.8-10.8)
--- NOTE | 2020-02-28 05:07 | PC.NURSE ---
notified rad of need for xrays
[2020-02-28 05:16] LABS: Anion Gap 15.3 mEq/L (5-15); Blood Urea Nitrogen 13 mg/dl (9-20); Calcium 9.6 mg/dl (8.4-10.2); Carbon Dioxide 31 mmol/L (22.0-30.0); Chloride 92 mmol/L (98-107); Creatinine Clearance Estimated 53 mL/min (50-200); Estimated Glomerular Filt Rate 165 ml/min (>60); GFR (African American) 199 ML/MIN (>60); Glucose 126 mg/dl (74-100); Potassium 4.3 mmoL/L (3.5-5.1); Sodium 134 mmol/L (136-145)
[2020-02-28 05:22] LABS: C-Reactive Protein 228.9 mg/L (0-4)
[2020-02-28 05:30] LABS: Erythrocyte Sedimentation Rate > 140 mm/hr (0-20)
--- NOTE | 2020-02-28 05:32 | PC.NURSE ---
called and asked rad if she was coming to get the patient; states she is preparing the injectors for the ct at this time
[2020-02-28 05:37] LABS: Troponin I < 0.01 ng/ml (0.00-0.034)
[2020-02-28 06:54] VITALS: BP 102/64; PULSE 92; RESP 16; TEMP 36.6; O2SAT 95
--- NOTE | 2020-02-28 06:58 | HMH.EDCP ---
ED Disposition Clinical Impression: Prostate cancer metastatic to bone Chest pain Qualifiers: Chest pain type: precordial pain Qualified Code(s): R07.2 - Precordial pain Disposition: Home, Self-Care Condition on Discharge: Good Instructions: DI for Atypical Chest Pain Additional Instructions: call pcp for follow up Referrals: Provider,Referral, [Referring] - - Critical Care Critical Care Time: No Attestation: On 02/28/20, the high probability of a clinically significant, sudden or life threatening deterioration of the following system(s) required my full and direct attention, intervention and personal management. The time I documented below is in addition to time spent performing reported procedures but includes the following listed in this critical care notation. Medical Decision Making - Medical Records Medical records reviewed: Yes: I reviewed the patient's medical records. - Syed Inquiry Pt receiving controlled substance: No Vital Signs: 02/28/20 04:53 Temperature 100.0 F H Temperature Source Oral Pulse Rate [Right] 101 H Respiratory Rate 16 Blood Pressure [Right Arm] 99/63 L Blood Pressure Mean [Right Arm] 75 Blood Pressure Source [Right Arm] Automatic Cuff Blood Pressure Position [Right Arm] Sitting 02 Sat by Pulse Oximetry 98 Oxygen Delivery Method Room Air - Lab Data Lab results reviewed: Yes: I reviewed the patient's lab results. Lab Results 02/28/20 04:54: WBC 6.8, RBC 3.23 L, Hgb 9.5 L, Hct 28.8 L, MCV 89.3, MCH 29.4, MCHC 33.0, RDW 20.7 H, Plt Count 359, MPV 7.3 L, Neut % (Auto) 84.3 H, Lymph % (Auto) 9.8 L, [place] % (Auto) 4.9, Eos % (Auto) 0.7, Baso % (Auto) 0.3, Neut # (Auto) 5.7, Lymph # (Auto) 0.7, [place] # (Auto) 0.3, Eos # (Auto) 0.1, Baso # (Auto) 0.0 02/28/20 04:54: Sodium 134 L, Potassium 4.3, Chloride 92 L, Carbon Dioxide 31 H, Anion Gap 15.3 H, BUN 13, Creatinine 0.50 L, Estimated Creat Clear 53, Estimated GFR 165, Est GFR ( Amer) 199, Glucose 126 H, Calcium 9.6, Troponin I < 0.01, C-Reactive Protein 228.9 H 02/28/20 04:54: ESR > 140 H Result diagrams: 02/28/20 04:54 02/28/20 04:54 Orders (Tests/Meds): ED MEDICATIONS Generic Name Dose Route Start Last Admin Trade Name Freq PRN Reason Stop Dose Admin Sodium Chloride 1,000 mls @ 999 mls/hr 02/28/20 05:00 02/28/20 05:03 Sod Chlor 0.9% 1000ml Bag IV 02/28/20 06:00 999 mls/hr .Q1H1M LANDON Administration Discontinued Medications Generic Name Dose Route Start Last Admin Trade Name Freq PRN Reason Stop Dose Admin Aspirin 324 mg 02/28/20 05:04 02/28/20 05:04 Aspirin 81mg Chewable Tablet PO 02/28/20 05:05 324 mg ONCE ONE Administration Ioversol 70 ml 02/28/20 06:21 02/28/20 06:22 Rad-Optiray 350 100ml Vial IV 02/28/20 06:22 70 ml ONCE ONE Administration Protocol Morphine Sulfate 2 mg 02/28/20 05:00 02/28/20 05:03 Morphine 2mg/Ml Syringe IV 02/28/20 05:01 2 mg ONCE ONE Administration Ondansetron HCl 4 mg 02/28/20 05:00 02/28/20 05:03 Zofran 4mg/2ml Vial IV 02/28/20 05:01 4 mg ONCE ONE Administration Sodium Chloride 40 ml 02/28/20 06:21 02/28/20 06:22 Rad-Ns 50ml Vial IV 02/28/20 06:22 40 ml ONCE ONE Administration Sodium Chloride 10 ml 02/28/20 06:21 02/28/20 06:22 Rad-Saline Flush 10ml Syringe IV 02/28/20 06:22 10 ml ONCE ONE Administration ORDERS Category Date Time Status CT angio chest Stat Cat Scan 02/28/20 05:00 Taken XR chest 2V Stat Exams 02/28/20 05:00 Taken Rapid Coronavirus-19 IgG/IgM Stat Lab 02/28/20 04:54 Received Troponin I Q3H Lab 02/28/20 08:00 Ordered Troponin I Q3H Lab 02/28/20 11:00 Ordered - Radiology Data #1 Image(s): Chest Image Reviewed: Yes I reviewed the patient's radiology image Preliminary Findings: Abnormal (mets) - CT Data CT Scan: Chest Time Received: 07:[address] Reviewed: Yes: I have viewed the radiologist's interpretation Preliminary Findings: Abnor
[2020-02-28 07:01] LABS: Coronavirus 19 IgG Antibody Negative (Negative); Coronavirus 19 IgM Antibody Negative (Negative)
== END 2020-02-28 07:11 | disposition home or self-care (01) ==
PROVIDERS: Emergency Provider Emergency Medicine; PCP Family Medicine
DX: R07.2 Precordial pain (principal); C61 Malignant neoplasm of prostate; C79.51 Secondary malignant neoplasm of bone
CPT/HCPCS: 71046; 71275; 80048; 84484; 85025; 85651; 86140; 86328; 93005; 96365; 96375; 99283; J2405; Q9967

== ENCOUNTER → 2020-03-02 15:15 | Outpatient (CLI) | payer MEDICARE, SELFPAY | PROVIDERS: Visit Provider Urology | DX: R33.9 Retention of urine, unspecified (principal) | CPT/HCPCS: 87086; 87088; 87186 ==

== ENCOUNTER → 2020-03-18 09:08 | Outpatient (CLI) | payer MEDICARE, SELFPAY ==
[2020-03-18 09:55] LABS: Basophils % 0.2 % (0.1-2.0); Eosinophils % 0.2 % (0.1-12.0); Lymphocytes # 0.6 K/mm3 (0.7-4.5); Lymphocytes % 11.9 % (10-50); Mean Corpuscular HGB Conc 31.2 g/dL (31.8-35.4); Mean Corpuscular Hemoglobin 28.9 pg (27.0-31.2); Mean Corpuscular Volume 92.7 fl (80-94); Monocytes # 0.4 K/mm3 (0.1-1.0); Monocytes % 6.5 % (1.7-9.3); Neutrophils # 4.3 K/mm3 (1.8-7.8); Neutrophils % 81.2 % (37.0-80.0); Platelet Count 343 K/mm3 (142-424); Red Blood Count 2.49 M/mm3 (4.60-6.20); Red Cell Distribution Width 22.1 % (11.5-17.5); White Blood Count 5.4 K/mm3 (4.8-10.8)
[2020-03-18 10:12] LABS: Chloride 95 mmol/L (98-107); Potassium 4.9 mmoL/L (3.5-5.1); Sodium 134 mmol/L (136-145)
[2020-03-18 10:15] LABS: Alanine Aminotransferase 11 U/L (12-78); Albumin Level 3.5 g/dl (3.5-5.0); Albumin/Globulin Ratio 1.2 (1.1-1.8); Alkaline Phosphatase 176 U/L (38-126); Anion Gap 15.9 mEq/L (5-15); Aspartate Amino Transferase 33 U/L (17-59); Bilirubin,Total 0.4 mg/dl (0.2-1.3); Blood Urea Nitrogen 19 mg/dl (9-20); Carbon Dioxide 28 mmol/L (22.0-30.0); Estimated Glomerular Filt Rate 165 ml/min (>60); GFR (African American) 199 ML/MIN (>60); Glucose 137 mg/dl (74-100); Total Protein,Serum 6.5 g/dl (6.3-8.2)
[2020-03-18 10:39] LABS: Hematocrit 23.2 % (42.0-52.0); Hemoglobin 7.3 g/dL (14.1-18.0)
[2020-03-18 11:57] LABS: Prostate Specific Ag, Diagnost 292 ng/ml (0.0-4.0)
== END ==
PROVIDERS: Visit Provider Radiology Radiation Oncology
DX: C61 Malignant neoplasm of prostate (principal); C79.51 Secondary malignant neoplasm of bone
CPT/HCPCS: 36415; 80053; 84153; 85025

== ENCOUNTER → 2020-03-29 16:10 | Outpatient (CLI) | payer MEDICARE, SELFPAY ==
[2020-03-29 16:23] LABS: Basophils % 0.5 % (0.1-2.0); Eosinophils # 0.1 K/mm3 (0.0-0.4); Eosinophils % 1.2 % (0.1-12.0); Hematocrit 26.4 % (42.0-52.0); Hemoglobin 8.6 g/dL (14.1-18.0); Lymphocytes # 0.6 K/mm3 (0.7-4.5); Lymphocytes % 15.3 % (10-50); Mean Corpuscular HGB Conc 32.7 g/dL (31.8-35.4); Mean Corpuscular Hemoglobin 30.5 pg (27.0-31.2); Mean Corpuscular Volume 93.2 fl (80-94); Mean Platelet Volume 7.6 fl (7.4-10.4); Monocytes # 0.3 K/mm3 (0.1-1.0); Monocytes % 6.4 % (1.7-9.3); Neutrophils # 3.2 K/mm3 (1.8-7.8); Neutrophils % 76.5 % (37.0-80.0); Platelet Count 263 K/mm3 (142-424); Red Blood Count 2.83 M/mm3 (4.60-6.20); Red Cell Distribution Width 20.2 % (11.5-17.5); White Blood Count 4.1 K/mm3 (4.8-10.8)
== END ==
PROVIDERS: Visit Provider Radiology Radiation Oncology
DX: C61 Malignant neoplasm of prostate (principal); C79.51 Secondary malignant neoplasm of bone
CPT/HCPCS: 36415; 85025

== ENCOUNTER → 2020-04-26 16:46 | Outpatient (CLI) | payer MEDICARE, SELFPAY ==
[2020-04-26 17:24] LABS: Chloride 99 mmol/L (98-107); Potassium 4.3 mmoL/L (3.5-5.1); Sodium 136 mmol/L (136-145)
[2020-04-26 17:26] LABS: Alanine Aminotransferase 10 U/L (12-78); Aspartate Amino Transferase 21 U/L (17-59)
[2020-04-26 17:27] LABS: Albumin Level 3.3 g/dl (3.5-5.0); Albumin/Globulin Ratio 1.2 (1.1-1.8); Alkaline Phosphatase 226 U/L (38-126); Anion Gap 14.3 mEq/L (5-15); Bilirubin,Total 0.3 mg/dl (0.2-1.3); Blood Urea Nitrogen 14 mg/dl (9-20); Carbon Dioxide 27 mmol/L (22.0-30.0); Estimated Glomerular Filt Rate 297 ml/min (>60); GFR (African American) 360 ML/MIN (>60); Globulin 2.7 g/dL (1.3-3.2); Glucose 95 mg/dl (74-100)
[2020-04-26 17:55] LABS: Basophils % 0.2 % (0.1-2.0); Hematocrit 24.7 % (42.0-52.0); Lymphocytes # 0.5 K/mm3 (0.7-4.5); Lymphocytes % 15.4 % (10-50); Mean Corpuscular HGB Conc 31.3 g/dL (31.8-35.4); Mean Corpuscular Hemoglobin 30.7 pg (27.0-31.2); Mean Platelet Volume 7.4 fl (7.4-10.4); Monocytes # 0.2 K/mm3 (0.1-1.0); Monocytes % 6.5 % (1.7-9.3); Neutrophils # 2.5 K/mm3 (1.8-7.8); Neutrophils % 76.9 % (37.0-80.0); Platelet Count 238 K/mm3 (142-424); Red Blood Count 2.52 M/mm3 (4.60-6.20); Red Cell Distribution Width 20.6 % (11.5-17.5); White Blood Count 3.3 K/mm3 (4.8-10.8)
[2020-04-26 23:33] LABS: Prostate Specific Ag, Diagnost 281 ng/ml (0.0-4.0)
[2020-04-27 17:09] LABS: Hemoglobin 7.7 g/dL (14.1-18.0)
== END ==
PROVIDERS: Visit Provider Radiology Radiation Oncology
DX: C61 Malignant neoplasm of prostate (principal); C79.51 Secondary malignant neoplasm of bone
CPT/HCPCS: 36415; 80053; 84153; 85025

== ENCOUNTER → 2020-05-10 17:32 | Outpatient (CLI) | payer MEDICARE, SELFPAY ==
[2020-05-10 17:50] LABS: Basophils % 0.4 % (0.1-2.0); Eosinophils # 0.1 K/mm3 (0.0-0.4); Eosinophils % 1.2 % (0.1-12.0); Lymphocytes # 0.7 K/mm3 (0.7-4.5); Lymphocytes % 18.9 % (10-50); Mean Corpuscular HGB Conc 33.1 g/dL (31.8-35.4); Mean Corpuscular Hemoglobin 32.1 pg (27.0-31.2); Mean Platelet Volume 7.8 fl (7.4-10.4); Monocytes # 0.4 K/mm3 (0.1-1.0); Monocytes % 9.4 % (1.7-9.3); Neutrophils # 2.7 K/mm3 (1.8-7.8); Neutrophils % 70.1 % (37.0-80.0); Platelet Count 223 K/mm3 (142-424); Red Blood Count 2.47 M/mm3 (4.60-6.20); Red Cell Distribution Width 20.7 % (11.5-17.5); White Blood Count 3.9 K/mm3 (4.8-10.8)
[2020-05-10 18:26] LABS: Hemoglobin 7.9 g/dL (14.1-18.0)
[2020-05-10 20:28] LABS: Chloride 100 mmol/L (98-107); Potassium 4.2 mmoL/L (3.5-5.1); Sodium 134 mmol/L (136-145)
[2020-05-10 20:31] LABS: Alanine Aminotransferase 14 U/L (12-78); Albumin Level 3.5 g/dl (3.5-5.0); Albumin/Globulin Ratio 1.4 (1.1-1.8); Alkaline Phosphatase 263 U/L (38-126); Anion Gap 12.2 mEq/L (5-15); Aspartate Amino Transferase 69 U/L (17-59); Bilirubin,Total 0.5 mg/dl (0.2-1.3); Blood Urea Nitrogen 14 mg/dl (9-20); Carbon Dioxide 26 mmol/L (22.0-30.0); Estimated Glomerular Filt Rate 297 ml/min (>60); GFR (African American) 360 ML/MIN (>60); Globulin 2.5 g/dL (1.3-3.2); Glucose 100 mg/dl (74-100)
[2020-05-10 23:34] LABS: Prostate Specific Ag, Diagnost 395 ng/ml (0.0-4.0)
== END ==
PROVIDERS: Visit Provider Radiology Radiation Oncology
DX: C61 Malignant neoplasm of prostate (principal); C79.51 Secondary malignant neoplasm of bone
CPT/HCPCS: 36415; 80053; 84153; 85025

== ENCOUNTER 2020-06-25 21:01 | Observation (INO) | payer MEDICARE, SELFPAY ==
[2020-06-25 21:02] VITALS: BP 135/68; PULSE 104; RESP 16; TEMP 36.7; O2SAT 97; BMI 20.5
[2020-06-25 21:38] LABS: Basophils % 0.7 % (0.1-2.0); Eosinophils % 0.8 % (0.1-12.0); Lymphocytes # 0.4 K/mm3 (0.7-4.5); Neutrophils # 3.1 K/mm3 (1.8-7.8); White Blood Count 3.8 K/mm3 (4.8-10.8)
--- NOTE | 2020-06-25 21:40 | HMH.EDGENADL ---
ED Disposition Clinical Impression: Prostate cancer metastatic to bone, Intractable pain Anemia Qualifiers: Anemia type: unspecified type Qualified Code(s): D64.9 - Anemia, unspecified Disposition: Admitted as Observation Condition on Discharge: Fair Referrals: Francois Aguilar MD [Primary Care Provider] - - Critical Care Critical Care Time: No Attestation: On 06/25/20, the high probability of a clinically significant, sudden or life threatening deterioration of the following system(s) required my full and direct attention, intervention and personal management. The time I documented below is in addition to time spent performing reported procedures but includes the following listed in this critical care notation. Medical Decision Making - Medical Records Medical records reviewed: Yes: I reviewed the patient's medical records. - Syed Inquiry Pt receiving controlled substance: No Vital Signs: 06/25/20 21:02 06/25/20 21:56 Temperature 98.1 F Temperature Source Oral Pulse Rate [Left Radial] 104 H 88 Respiratory Rate 16 16 Blood Pressure [Right Arm] 135/68 104/64 L Blood Pressure Mean [Right Arm] 90 77 Blood Pressure Source [Right Arm] Automatic Cuff Blood Pressure Position [Right Arm] Sitting 02 Sat by Pulse Oximetry 97 96 Oxygen Delivery Method Room Air - Lab Data Lab results reviewed: Yes: I reviewed the patient's lab results. Lab Results 06/25/20 21:30: WBC 3.8 L, RBC 2.35 L, Hgb 7.5 L*, Hct 23.1 L*, MCV 98.1 H, MCH 32.0 H, MCHC 32.7, RDW 19.4 H, Plt Count 220, MPV 8.1, Neut % (Auto) 80.7 H, Lymph % (Auto) 11.4, [place] % (Auto) 6.4, Eos % (Auto) 0.8, Baso % (Auto) 0.7, Neut # (Auto) 3.1, Lymph # (Auto) 0.4 L, [place] # (Auto) 0.2, Eos # (Auto) 0.0, Baso # (Auto) 0.0 06/25/20 21:30: Sodium 134 L, Potassium 4.0, Chloride 98, Carbon Dioxide 29, Anion Gap 11.0, BUN 14, Creatinine 0.50 L, Estimated Creat Clear 54, Estimated GFR 165, Est GFR ( Amer) 199, Glucose 133 H, Calcium 9.3, Total Bilirubin 0.4, AST 30, ALT 10 L, Alkaline Phosphatase 238 H, Total Protein 6.5, Albumin 3.7, Globulin 2.8, Albumin/Globulin Ratio 1.3 06/25/20 21:30: SARS-CoV-2 IgG Ab (Rapid) Negative, SARS-CoV-2 IgM Ab (Rapid) Negative Result diagrams: 06/25/20 21:30 06/25/20 21:30 Orders (Tests/Meds): ED MEDICATIONS Generic Name Dose Route Start Last Admin Trade Name Freq PRN Reason Stop Dose Admin Sodium Chloride 1,000 mls @ 999 mls/hr 06/25/20 22:00 06/25/20 21:56 Sod Chlor 0.9% 1000ml Bag IV 06/25/20 23:00 999 mls/hr .Q1H1M LANDON Administration Discontinued Medications Generic Name Dose Route Start Last Admin Trade Name Freq PRN Reason Stop Dose Admin Morphine Sulfate 4 mg 06/25/20 21:56 06/25/20 21:57 Morphine 4mg/Ml Syringe IV 06/25/20 21:57 4 mg ONCE ONE Administration Ondansetron HCl 4 mg 06/25/20 21:56 06/25/20 21:57 Ondansetron 4mg/2ml Vial IV 06/25/20 21:57 4 mg ONCE ONE Administration ORDERS Category Date Time Status UA [Urinalysis and Microscopic] Stat Lab 06/25/20 21:34 Ordered General Adult HPI - General Chief complaint: PAIN Stated complaint: cancer , Pain in chest area,Pain Time Seen by Provider: 06/25/20 21:15 Mode of Arrival: Wheelchair Source of Information: Patient, Medical Record Limitations: No Limitations Description of Symptoms (Recalled from ER Triage Doc. by RN): pt stated he has prostate cancer and has been taking norco for pain. pt stated his medication hasnt been able to control his pain over the last two weeks. pt complaints of general pain all over and a pain across his chest and right arm with movement - History of Present Illness HPI narrative: known metatatic prostate cancer - with intractable pain - no relief with home meds - has interest in hospice - no fever Onset (ago): day(s) Location: neck, back, pelvis Severity: severe Associated symptoms: denies other symptoms - Related Data Home Medications Medication Instruc
[2020-06-25 21:43] LABS: Lymphocytes % 11.4 % (10-50); Mean Corpuscular HGB Conc 32.7 g/dL (31.8-35.4); Mean Corpuscular Volume 98.1 fl (80-94); Mean Platelet Volume 8.1 fl (7.4-10.4); Monocytes # 0.2 K/mm3 (0.1-1.0); Monocytes % 6.4 % (1.7-9.3); Neutrophils % 80.7 % (37.0-80.0); Platelet Count 220 K/mm3 (142-424); Red Blood Count 2.35 M/mm3 (4.60-6.20); Red Cell Distribution Width 19.4 % (11.5-17.5)
[2020-06-25 21:47] LABS: Hematocrit 23.1 % (42.0-52.0); Hemoglobin 7.5 g/dL (14.1-18.0)
--- NOTE | 2020-06-25 21:49 | PC.NURSE ---
critical Hct and Hbg reported to MD at this time
[2020-06-25 21:51] LABS: Alanine Aminotransferase 10 U/L (12-78); Albumin Level 3.7 g/dl (3.5-5.0); Albumin/Globulin Ratio 1.3 (1.1-1.8); Alkaline Phosphatase 238 U/L (38-126); Aspartate Amino Transferase 30 U/L (17-59); Bilirubin,Total 0.4 mg/dl (0.2-1.3); Blood Urea Nitrogen 14 mg/dl (9-20); Calcium 9.3 mg/dl (8.4-10.2); Carbon Dioxide 29 mmol/L (22.0-30.0); Chloride 98 mmol/L (98-107); Creatinine Clearance Estimated 54 mL/min (50-200); Estimated Glomerular Filt Rate 165 ml/min (>60); GFR (African American) 199 ML/MIN (>60); Globulin 2.8 g/dL (1.3-3.2); Glucose 133 mg/dl (74-100); Sodium 134 mmol/L (136-145); Total Protein,Serum 6.5 g/dl (6.3-8.2)
[2020-06-25 21:56] VITALS: BP 104/64; PULSE 88; RESP 16; O2SAT 96
[2020-06-25 22:13] LABS: Coronavirus 19 IgG Antibody Negative (Negative); Coronavirus 19 IgM Antibody Negative (Negative)
--- NOTE | 2020-06-25 22:26 | PC.NURSE ---
Patient assigned to [id number]
[2020-06-25 22:29] VITALS: BP 107/66; PULSE 84; RESP 18; O2SAT 93
[2020-06-25 22:42] VITALS: BP 105/70; PULSE 85; RESP 15; TEMP 36.8; O2SAT 94
--- NOTE | 2020-06-25 22:42 | PC.NURSE ---
report called to DELISA Briones
[2020-06-25 22:51] VITALS: BP 119/67; PULSE 89; RESP 16; TEMP 36.7; O2SAT 93; BMI 17.9
--- NOTE | 2020-06-25 22:51 | PC.NURSE ---
patient up to floor via stretcher.
[2020-06-26] VITALS (24 sets, daily range): BP systolic 94–130; BP diastolic 58–99; PULSE 83–97; RESP 16–19; TEMP 36.6–36.8; O2SAT 92–98; BMI 17.9
[2020-06-26 00:49] LABS: Microscopic, Urine URINE MICROSCOPIC (MICROSCOPIC)
[2020-06-26 00:52] LABS: Appearance,Urine CLEAR (Clear); Bilirubin,Urine Negative (Negative); Blood, Urine Negative (Negative); Color,Urine YELLOW (Yellow); Glucose,Urine (UA) Negative (Negative); Ketones,Urine Negative (Negative); Leukocyte Esterase,Urine Negative (Negative); Nitrate,Urine Negative (Negative); PH,Urine 5.5 (5.0-8.5); Protein,Urine Negative (Negative); Specific Gravity, Urine 1.025 (1.005-1.030); Urobilinogen,Urine 0.2 EU/dl (0.2)
[2020-06-26 00:55] LABS: Mucus,Urine 1+ /lpf
--- NOTE | 2020-06-26 04:15 | PC.NURSE ---
Pt A&OX4 lungs CTA pt denies SOA. pt c/o generalized pain and has been medicated per MAR. pt has voided per urinal x2 assistance. Pt's at bedside. CI in reach
[2020-06-26 07:13] LABS: Basophils % 0.4 % (0.1-2.0); Eosinophils % 0.7 % (0.1-12.0); Lymphocytes # 0.4 K/mm3 (0.7-4.5); Lymphocytes % 12.3 % (10-50); Mean Corpuscular HGB Conc 32.2 g/dL (31.8-35.4); Mean Corpuscular Volume 99.3 fl (80-94); Mean Platelet Volume 7.5 fl (7.4-10.4); Monocytes # 0.2 K/mm3 (0.1-1.0); Monocytes % 7.5 % (1.7-9.3); Neutrophils # 2.2 K/mm3 (1.8-7.8); Neutrophils % 79.2 % (37.0-80.0); Platelet Count 177 K/mm3 (142-424); Red Blood Count 2.11 M/mm3 (4.60-6.20); Red Cell Distribution Width 19.5 % (11.5-17.5); White Blood Count 2.8 K/mm3 (4.8-10.8)
[2020-06-26 07:21] LABS: Chloride 101 mmol/L (98-107); Sodium 135 mmol/L (136-145)
[2020-06-26 07:22] LABS: Potassium 3.9 mmoL/L (3.5-5.1)
[2020-06-26 07:24] LABS: Blood Urea Nitrogen 11 mg/dl (9-20); Creatinine Clearance Estimated 50 mL/min (50-200); Estimated Glomerular Filt Rate 213 ml/min (>60); GFR (African American) 258 ML/MIN (>60)
[2020-06-26 07:25] LABS: Anion Gap 9.9 mEq/L (5-15); Calcium 8.6 mg/dl (8.4-10.2); Carbon Dioxide 28 mmol/L (22.0-30.0); Glucose 98 mg/dl (74-100)
[2020-06-26 07:26] LABS: Hematocrit 20.9 % (42.0-52.0); Hemoglobin 6.7 g/dL (14.1-18.0)
--- NOTE | 2020-06-26 07:30 | PC.NURSE ---
Addendum entered by Syeda Castro RN 06/26/20 07:36: 20.9* not 10.9 Original Note: Lab called with a critical lab value hemoglobin 6.7 and hct 10.9. Notified Dr. Aguilar.
--- NOTE | 2020-06-26 08:40 | HMH.HP ---
*Admission Date: 06/25/20 *Chief complaint: Pain *History of present illness: 70-year-old male with known metastatic prostate cancer presented to the emergency department due to uncontrolled pain from bony metastases. Patient's oncologist is Dr. Hernandez. Patient has missed his appointment with Dr. Hernandez earlier in the week due to being too weak to travel. Patient's reports Dr. Hernandez has recommended hospice for the patient which patient has been resistant to. Patient presented to the emergency department with the complaint of uncontrolled pain and was given IV morphine followed shortly by IV Dilaudid which patient reports helped but he cannot really quantify how much relief he got. He indicates his pain primarily is in his chest and in his right scapula. [facility] History I have reviewed the patient's past medical history: Yes Medical History: Reports:: Cancer, Urinary Tract Infection Denies:: Diabetes Mellitus Type 1, Diabetes Mellitus Type 2, MRSA *Have you ever received a pneumonia vaccine?: No *Have you received a flu vaccine this season?: No Other Medical History: Reports: Anemia, Arthritis, Radiation TherapyComment Only: Chemotherapy (radiation) Other Surgeries: Yes: No Previous Surgery, Cancer Surgery, Colonoscopy, EGD Amputation: No Fractures: No - *Social History Last grade of school completed: 11th or 12th Smoking Status: Never smoker Alcohol Intake: never Substance Use Type: denies use *Occupational Status:: retired Housing: house Household Members: spouse *Travel in the last 8 weeks: None Family Hx:: Diabetes, Heart Attack, Hyperlipidemia, Hypertension Review of Systems - Constitutional Reports anorexia - ENT Reports abnormal hearing - *Cardiovascular Reports chest pain - *Musculoskeletal Reports joint pain, Reports decreased muscle mass - *Neurologic Reports weakness, Denies localized weakness, Denies seizure-like activity Meds Home Medications Medication Instructions Recorded Confirmed Type Hydrocodone/Acetaminophen 1 tab PO Q6 PRN 11/11/19 06/25/20 History [Hydrocodone-Acetamin 10-325 mg] Allergies Allergy/AdvReac Type Severity Reaction Status Date / Time sulfamethoxazole Allergy Unknown Verified 06/25/20 23:35 [From Bactrim] trimethoprim [From Bactrim] Allergy Unknown Verified 06/25/20 23:35 Sulfa (Sulfonamide Allergy Verified 06/25/20 23:35 Antibiotics) Exam Vital signs and Labs for Last 24 Hours: Temp Pulse Resp BP Pulse Ox 97.8 F 87 16 126/71 92 L 06/26/20 04:00 06/26/20 04:00 06/26/20 04:00 06/26/20 04:00 06/26/20 04:00 Laboratory Results - last 24 hr 06/25/20 21:30: WBC 3.8 L, RBC 2.35 L, Hgb 7.5 L*, Hct 23.1 L*, MCV 98.1 H, MCH 32.0 H, MCHC 32.7, RDW 19.4 H, Plt Count 220, MPV 8.1, Neut % (Auto) 80.7 H, Lymph % (Auto) 11.4, [place] % (Auto) 6.4, Eos % (Auto) 0.8, Baso % (Auto) 0.7, Neut # (Auto) 3.1, Lymph # (Auto) 0.4 L, [place] # (Auto) 0.2, Eos # (Auto) 0.0, Baso # (Auto) 0.0 06/25/20 21:30: Sodium 134 L, Potassium 4.0, Chloride 98, Carbon Dioxide 29, Anion Gap 11.0, BUN 14, Creatinine 0.50 L, Estimated Creat Clear 54, Estimated GFR 165, Est GFR ( Amer) 199, Glucose 133 H, Calcium 9.3, Total Bilirubin 0.4, AST 30, ALT 10 L, Alkaline Phosphatase 238 H, Total Protein 6.5, Albumin 3.7, Globulin 2.8, Albumin/Globulin Ratio 1.3 06/25/20 21:30: SARS-CoV-2 IgG Ab (Rapid) Negative, SARS-CoV-2 IgM Ab (Rapid) Negative 06/26/20 00:40: Urine Color Yellow, Urine Appearance Clear, Urine pH 5.5, Ur Specific [place] 1.025, Urine Protein Negative, Urine Glucose (UA) Negative, Urine Ketones Negative, Urine Blood Negative, Urine Nitrate Negative, Urine Bilirubin Negative, Urine Urobilinogen 0.2, Ur Leukocyte Esterase Negative, Urine WBC 3-5, Ur Squamous Epith Cells 3-5, Urine Mucus 1+ 06/26/20 06:25: WBC 2.8 L D, RBC 2.11 L, Hgb 6.7 L*, Hct 20.9 L*, MCV 99.3 H, MCH 32.0 H, MCHC 32.2, RDW 19.5 H, Plt Count 177, MPV 7.5, Neut % (Auto) 79.2, Lymph % (Auto) 12.3, [place] % (Au
--- NOTE | 2020-06-26 08:59 | PC.NURSE ---
Hospice called to let me know it would be this afternoon before she could come see the patient. Pt and family aware.
--- NOTE | 2020-06-26 12:03 | HMH.PHAVTE ---
[facility] Pharmacy VTE Monitoring - Patient Demographics Admission date: 06/26/20 Report Date: 06/26/20 Time: 12:03 Allergies/Adverse Reactions: Patient Allergies sulfamethoxazole [From Bactrim] Allergy (Unknown, Verified 06/25/20 23:35) trimethoprim [From Bactrim] Allergy (Unknown, Verified 06/25/20 23:35) Sulfa (Sulfonamide Antibiotics) Allergy (Verified 06/25/20 23:35) Height: 1.68 m Weight: 50.576 kg Patient Problems: Current Active Problems (This Medical Record has been edited. Action required.) Prostate cancer metastatic to bone (Acute) Intractable pain (Acute) Anemia (Acute) - VTE Risk Labs: VTE Related Lab Results Hgb 6.7 g/dL (14.1-18.0) L* 06/26/20 06:25 Hct 20.9 % (42.0-52.0) L* 06/26/20 06:25 Plt Count 177 K/mm3 (142-424) 06/26/20 06:25 BUN 11 mg/dl (9-20) 06/26/20 06:25 Creatinine 0.40 mg/dl (0.66-1.25) L 06/26/20 06:25 Estimated Creat Clear 50 mL/min (50-200) 06/26/20 06:25 VTE Score: 1 - Prophylaxis Types of VTE Prophylaxis: TEDS Knee High (RITO HOSE ORDERED)
--- NOTE | 2020-06-26 16:34 | PC.NURSE ---
A&OX4. PT HAS TOLERATED ROOM AIR WELL THROUGHOUT SHIFT. RESPIRATIONS REGULAR AND UNLABORED. LUNG SOUNDS BILATERALLY CLEAR. NO COUGH NOTED. NO EDEMA NOTED. +2 PULSES NOTED THROUGHOUT. ACTIVE BOWEL SOUNDS HEARD IN ALL 4 QUADRANTS. SOFT AND NONTENDER ABDOMEN. NO BM THUS FAR. PT VOIDS PER URINAL. CLEAR YELLOW URINE NOTED. AT BEDSIDE. PT HAS REPORTED PAIN TWICE AND RECEIVED DILAUDID 1MG. MORPHINE HAS BEEN OFFERED, BUT PT HAS REFUSED IT. NO NAUSEA REPORTED. PT HAS REMAINED AFEBRILE. HOSPICE WAS CONSULTED. PT AND ARE IN AGREEANCE FOR PT TO GO ON HOSPICE. FACE SHEET, MED LIST, AND H&P FAXED TO PHARMACY. PT HAS RECEIVED 1 UNIT OF BLOOD AND IS CURRENTLY RECEIVING A 2ND UNIT NOW. PT TOLERATING WELL. PT IS CURRENTLY SLEEPING IN BED. CALL LIGHT WITHIN REACH. BED IN LOWEST POSITION. VSS. WILL CONTINUE TO MONITOR.
[2020-06-26 18:31] LABS: Hematocrit 30.7 % (42.0-52.0)
[2020-06-26 18:33] LABS: Hemoglobin 10.2 g/dL (14.1-18.0)
--- NOTE | 2020-06-27 00:47 | PC.NURSE ---
pt ambulating in the phillips with at this time
[2020-06-27 04:00] VITALS: BP 105/60; PULSE 81; RESP 20; TEMP 36.7; O2SAT 93
--- NOTE | 2020-06-27 04:24 | PC.NURSE ---
PT is A&O x4. Pt has c/o generalized pain multiple times this shift. This nurse offered pt's PRN Roxanol and educated the pt on the potential course of treatment of administration of morphine while on Hospice. Pt verbalized understanding and agreed to take PRN roxanol. Upon reassessment pt stated That medicine just made my pain worse, it's a 10/10 now, I can barely stand it. This nurse then administered pt's PRN dilaudid. Upon reassessment this time, pt was sleeping with eyes closed. The next time pt rang out for pain medicine, pt stated the stuff in my mouth just made me hurt worse, Im not taking that again. PRN dilaudid was then administered again, pt currently sleeping in bed with eyes closed. Pt has ambulated in phillips with help of and staff x2 this shift.Pt has been turned this shift at pt's request. Pt has used urinal at the bedside and has urinated cloudy, yellow urine this shift. Lung sounds remain clear t/o. has remained at bedside t/o this entire shift. Call light is in reach. No other complaints or acute changes at this time. Will continue to monitor.
[2020-06-27 05:00] VITALS: BMI 19.0
--- NOTE | 2020-06-27 07:56 | PC.NURSE ---
Pt is ambulating in the phillips with his .
[2020-06-27 08:00] VITALS: BP 126/79; PULSE 102; RESP 18; TEMP 37; O2SAT 96
--- NOTE | 2020-06-27 08:16 | HMH.DCSUM ---
General - General Admission date:: 06/25/20 Discharge date: 06/27/20 HPI HPI: 70-year-old male with known metastatic prostate cancer presented to the emergency department due to uncontrolled pain from bony metastases. Patient's oncologist is Dr. Hernandez. Patient has missed his appointment with Dr. Hernandez earlier in the week due to being too weak to travel. Patient's reports Dr. Hernandez has recommended hospice for the patient which patient has been resistant to. Patient presented to the emergency department with the complaint of uncontrolled pain and was given IV morphine followed shortly by IV Dilaudid which patient reports helped but he cannot really quantify how much relief he got. He indicates his pain primarily is in his chest and in his right scapula. Hospital Course Hospital Course: Patient was admitted and pain was initially treated with IV Dilaudid which did bring patient's pain under control. Patient was transitioned to oral morphine which he claimed made his pain worse. However patient also admits his memory is not good and he was unsure by the day of discharge why the morphine was so disagreeable. Nonetheless hospice was consulted due to the patient's metastatic prostate cancer with poor prognosis. Hospice will follow up with the patient on June 28. At discharge patient was transitioned to [place] 10 every 4 hours as needed and encouraged to use the medication as often as needed instead of allowing pain to get out of control. Objective Vital signs: Temp Pulse Resp BP Pulse Ox 98.6 F 102 H 18 126/79 96 06/27/20 08:00 06/27/20 08:00 06/27/20 08:00 06/27/20 08:00 06/27/20 08:00 no acute distress, thin, cachectic Results Labs on day of discharge: Labs from last 24 hours 06/26/20 06/26/20 18:25 09:35 Hgb 10.2 L D Hct 30.7 L Blood Type A Negative Antibody Screen Negative Crossmatch (AHG) See Detail DS: Diagnosis - Discharge Diagnosis (1) Prostate cancer metastatic to bone Status: Acute (2) Anemia Status: Acute Discharge Plan - Patient Discharge Instructions ACTIVITY: Continue current activity DIET: continue same diet Patient Instructions: DI for Cancer Pain Syndromes, Anemia - Follow up Plan Disposition: Home, Self-Senior Living Medications: Home Medications Medication Instructions Recorded Confirmed Type Hydrocodone/Acetaminophen 1 tab PO Q4HP PRN #20 tab 06/27/20 Rx [Hydrocodone-Acetamin 10-325 mg] Prescriptions/Medication Reconciliation: Changed Hydrocodone/Acetaminophen [Hydrocodone-Acetamin 10-325 mg] 1 tab PO Q4HP PRN #20 tab PRN Reason: pain - Problem Reconciliation Problems Reviewed?: Yes
--- NOTE | 2020-06-27 09:35 | PC.NURSE ---
A&OX4. PT HAS TOLERATED ROOM AIR WELL THROUGHOUT SHIFT. RESPIRATIONS REGULAR AND UNLABORED. LUNG SOUNDS BILATERALLY DIMINISHED. NO COUGH NOTED. ACTIVE BOWEL SOUNDS HEARD IN ALL 4 QUADRANTS. SOFT AND NONTENDER ABDOMEN. NO BM REPORTED. PT VOIDS PER URINAL. CLEAR YELLOW URINE NOTED. PHARMACY CAME AND EDUCATED PT ON DISCHARGE MEDS. PT'S WAS THERE WELL AND SHE VERBALIZED UNDERSTANDING. IV WAS REMOVED W CATHETER INTACT. KOBAN AND 4X4S APPLIED. HOSPICE NURSE NOTIFIED OF PT BEING DISCHARGED HOME. GAVE PT'S NUMBER TO CALL HOSPICE AND LET THEM KNOW WHEN THEY GET HOME. PT'S STATED SHE WOULD. HAND TOP LIFT COMPRESSOR EQUAL. +2 PULSES NOTED THROUGHOUT. PT CURRENTLY SITTING ON SIDE OF BED. CALL LIGHT WITHIN REACH. BED IN LOWEST POSITION. VSS. WILL CONTINUE TO MONITOR.
--- NOTE | 2020-06-28 13:08 | SW/DCPLANNER ---
PATIENT DISCHARGED OVER THE WEEKEND AND HOSPICE WAS CALLED PER STAFF AND PATIENT DISCHARGED TO HOME TO BE ADMITTED TO HOSPICE SERVICES ONCE HE GETS HOME PER DEBBIE MOCK RN (HOSPICE NURSE)....
== END 2020-06-27 09:47 | disposition home or self-care (01) ==
LOC: ER 22:18 → 2ND 22:34
PROVIDERS: Admitting Provider Emergency Medicine; Emergency Provider Emergency Medicine; PCP Family Medicine; Visit Provider Family Medicine
DX: G89.3 Neoplasm related pain (acute) (chronic) (principal); C61 Malignant neoplasm of prostate; D63.0 Anemia in neoplastic disease; C79.51 Secondary malignant neoplasm of bone
CPT/HCPCS: 36430; 36415; 80048; 80053; 81001; 85014; 85018; 85025; 86328; 86850; 87081; 96365; 96375; 99283; G0378; J2405; P9016

== ENCOUNTER 2020-06-30 07:01 | Emergency (ER) | payer OTHER, MEDICARE, SELFPAY ==
[2020-06-30 07:02] VITALS: BP 143/65; PULSE 82; RESP 19; TEMP 36.5; O2SAT 97; BMI 19.8
--- NOTE | 2020-06-30 07:23 | CT_ITS ---
PROCEDURE: CT THORACIC SPINE WO CON CLINICAL HISTORY: fall Posttraumatic pain, fall with injury and pain COMPARISON: CT [facility] CT angio chest from 12/06/2018 TECHNIQUE: Axial images obtained with sagittal and coronal reformats. All CT scans at the facility use one or more dose reduction, viz: automated exposure control, ma/kV adjustment per patient size (including targeted exams where dose is matched to indication, i.e. head), or iterative reconstruction technique. FINDINGS: There is diffuse blastic metastasis of the spine ribs and scapula. There is mild wedging of C7 A lytic lesion involves the body of steal 1. There is wedge compression changes involving T1 of approximately 40 percent. No obvious retropulsion. There is minimal wedging of T2. Lytic focus is present along the superior endplate of T4 and the inferior endplate of T5. Mottled lucencies are also present from T6 to T12 along with the diffuse blastic appearance. There are trace bilateral effusions. In the upper lobes there is interstitial and alveolar opacification. There is a mass involving the right adrenal gland measuring 8.4 x 5.2 cm. IMPRESSION: 1. Diffuse blastic metastasis of the spine and ribs and scapula. There are intermixed lucencies also present consistent with some lytic component to the metastatic disease. 2. Mild wedge compression changes of C7. 3. Wedge compression change of T1 of approximately 40 percent without obvious retropulsion. 4. Trace bilateral effusions. 5. Right adrenal mass consistent with metastatic disease. Dictated by: Harpreet Castro MD 06/30/2020 08:32 Harpreet Castro MD in [place] 06/30/2020 08:32
--- NOTE | 2020-06-30 07:23 | XR_ITS ---
PROCEDURE: XR CHEST PORTABLE CLINICAL HISTORY: fall Posttraumatic pain COMPARISON: CR [id number] XR chest portable from 12/06/2018 CR XR CHEST PORTABLE from 10/06/[address] ANGIO CHEST from 02/28/2020 CR XR CHEST 2V from 02/28/2020 FINDINGS: There is diffuse blastic metastasis of the bony structures. Normal heart size. Patchy density is noted in the upper lobes on both sides and may be due to developing pneumonia. No acute fracture apparent. Please see thoracic spine CT report IMPRESSION: Diffuse metastasis with possible developing pneumonia in the upper lobes. Dictated by: Harpreet Castro MD 06/30/2020 08:35 Harpreet Castro MD in [place] 06/30/2020 08:35
--- NOTE | 2020-06-30 07:23 | CT_ITS ---
PROCEDURE: CT HEAD/BRAIN WO CON CLINICAL INDICATION: fall Head injury with headache/pain, contusion, abrasion or hematoma COMPARISON: CT CT HEAD/BRAIN WO CON from 10/06/2019 TECHNIQUE: Axial images obtained. All CT scans at the facility use one or more dose reduction, viz: automated exposure control, ma/kV adjustment per patient size (including targeted exams where dose is matched to indication, i.e. head), or iterative reconstruction technique. FINDINGS: Subarachnoid hemorrhage is present. Subarachnoid blood noted in the left parietal lobe, left temporal lobe, left frontal lobe and the interhemispheric fissure. No midline shift or mass effect. No intraventricular hemorrhage. No acute calvarial fracture apparent. Mucosal thickening involves the sphenoid and ethmoid sinuses. There is right-sided mastoid effusion. Small amount of blood is present in the interhemispheric fissure inferiorly and could be related to subarachnoid or small subdural hemorrhage. No midline shift. Small amount of blood also noted along the anterior aspect of the left temporal lobe which could also be subarachnoid or subdural. No mass effect. IMPRESSION: 1. Mild diffuse subarachnoid hemorrhage with small amount of blood in the left anterior temporal region and in the interhemispheric fissure which could be either subarachnoid or subdural without mass effect. Cyst 2. No midline shift or acute calvarial fracture. Dictated by: Harpreet Castro MD 06/30/2020 08:16 Harpreet Castro MD in [place] 06/30/2020 08:16
--- NOTE | 2020-06-30 07:23 | XR_ITS ---
PROCEDURE: XR PELVIS 1-2V CLINICAL INDICATION: fall Posttraumatic pain COMPARISON: No exams were available for comparison TECHNIQUE: XR Pelvis AP View FINDINGS: Diffuse blastic metastasis consistent with prostate cancer. No acute fracture or dislocation. IMPRESSION: Diffuse blastic metastatic disease Dictated by: Harpreet Castro MD 06/30/2020 08:36 Harpreet Castro MD in [place] 06/30/2020 08:36
--- NOTE | 2020-06-30 07:23 | CT_ITS ---
PROCEDURE: CT CERVICAL SPINE WO CON CLINICAL INDICATION: fall Neck injury with pain, contusion/abrasion or hematoma, cervical sprain/strain the COMPARISON: CT CT THORACIC SPINE WO CON from 06/30/2020 TECHNIQUE: Axial images obtained with sagittal and coronal reformats. All CT scans at the facility use one or more dose reduction, viz: automated exposure control, ma/kV adjustment per patient size (including targeted exams where dose is matched to indication, i.e. head), or iterative reconstruction technique. Axial spiral CT scanning performed of the cervical spine beginning at the base of the skull and continuing to the upper T-spine. 3-D multiplanar reconstruction with 3-D manipulation of volumetric data set in image rendering was completed by the radiologist and/or technologist with the supervision of the radiologist on independent workstation. FINDINGS: There is normal alignment. There is diffuse osteoblastic appearance of the cervical spine and skull base consistent with diffuse prostate blastic metastasis. Lucency is noted in the posterior aspect and inferior aspect of the C2 vertebral body. C2-C3 and C3-C4 have an unremarkable appearance. C4-C5 unremarkable. C5-C6: Degenerate disc disease with some endplate ridging and mild left foraminal narrowing. Lucency noted in the C5 vertebral body posteriorly. Broad-based left paracentral disc osteophyte complex is present with left lateral recess and foraminal narrowing. C6-C7: Degenerate disc disease with endplate osteophytes. Lucency noted along the superior endplate of C7 on the left suggesting a lytic component to the metastasis. IMPRESSION: 1. No acute cervical fracture apparent. 2. Diffuse blastic metastasis. 3. Lucency is also noted at the C2 and see 5 vertebral bodies and the superior aspect of C7 suggesting a lytic component to the metastasis. Dictated by: Harpreet Castro MD 06/30/2020 08:21 Harpreet Castro MD in [place] 06/30/2020 08:21
--- NOTE | 2020-06-30 07:39 | PC.NURSE ---
Pt changed into gown and is going to rad at this time.
--- NOTE | 2020-06-30 07:51 | PC.NURSE ---
Pt in radiology
[2020-06-30 08:07] VITALS: BP 137/83; PULSE 83; O2SAT 96
--- NOTE | 2020-06-30 08:07 | PC.NURSE ---
Pt repositiioned in bed at this time.
--- NOTE | 2020-06-30 08:08 | HMH.EDGENADL ---
ED Disposition Clinical Impression: Metastatic malignant neoplasm to prostate Traumatic subarachnoid hemorrhage Qualifiers: Encounter type: initial encounter Loss of consciousness presence/duration: without LOC Qualified Code(s): S06.6X0A - Traumatic subarachnoid hemorrhage without loss of consciousness, initial encounter Disposition: Xfer Short-Term Hosp Condition on Discharge: Serious Referrals: Francois Aguilar MD [Primary Care Provider] - Forms: Transfer Record - ED - Critical Care Critical Care Time: No Attestation: On 06/30/20, the high probability of a clinically significant, sudden or life threatening deterioration of the following system(s) required my full and direct attention, intervention and personal management. The time I documented below is in addition to time spent performing reported procedures but includes the following listed in this critical care notation. Medical Decision Making - Medical Records Medical records reviewed: Yes: I reviewed the patient's medical records. MR Comment: Admit 06/25/2020 through 06/27/2020. Discharge summary reviewed. - Syed Inquiry Pt receiving controlled substance: Yes Syed was queried for this patient: No Reason not queried -: Emergent pt cond-no time Risks and benefits of using a controlled substance: were not discussed with pt by me Vital Signs: 06/30/20 07:02 06/30/20 08:07 06/30/20 08:29 Temperature 97.7 F Temperature Source Oral Pulse Rate [Left Radial] 82 83 78 Respiratory Rate 19 Blood Pressure [Right Arm] 143/65 H 137/83 138/81 Blood Pressure Mean [Right Arm] 91 101 100 Blood Pressure Source [Right Arm] Automatic Cuff Automatic Cuff Automatic Cuff Blood Pressure Position [Right Arm] Sitting Sitting Sitting 02 Sat by Pulse Oximetry 97 96 97 Oxygen Delivery Method Room Air Room Air Room Air - Lab Data Lab results reviewed: Yes: I reviewed the patient's lab results. Lab Results 06/30/20 07:20: WBC 2.8 L, RBC 3.64 L, Hgb 11.1 L, Hct 35.0 L, MCV 96.0 H, MCH 30.4, MCHC 31.6 L, RDW 19.0 H, Plt Count 211, MPV 7.0 L, Neut % (Auto) 76.1, Lymph % (Auto) 14.3, [place] % (Auto) 7.7, Eos % (Auto) 1.5, Baso % (Auto) 0.5, Neut # (Auto) 2.2, Lymph # (Auto) 0.4 L, [place] # (Auto) 0.2, Eos # (Auto) 0.0, Baso # (Auto) 0.0 06/30/20 07:20: Sodium 136, Potassium 4.1, Chloride 98, Carbon Dioxide 29, Anion Gap 13.1, BUN 11, Creatinine 0.40 L, Estimated Creat Clear 58, Estimated GFR 213, Est GFR ( Amer) 258, Glucose 99, Calcium 9.4, Total Bilirubin 0.5, AST 38, ALT 11 L, Alkaline Phosphatase 215 H, Total Protein 6.6, Albumin 3.7, Globulin 2.9, Albumin/Globulin Ratio 1.3 Result diagrams: 06/30/20 07:20 06/30/20 07:20 Orders (Tests/Meds): ED MEDICATIONS Discontinued Medications Generic Name Dose Route Start Last Admin Trade Name Freq PRN Reason Stop Dose Admin Sodium Chloride 1,000 mls @ 999 mls/hr 06/30/20 07:30 06/30/20 07:32 Sod Chlor 0.9% 1000ml Bag IV 06/30/20 08:30 999 mls/hr .Q1H1M LANDON Administration Morphine Sulfate 4 mg 06/30/20 07:29 06/30/20 07:32 Morphine 4mg/Ml Syringe IV 06/30/20 07:30 4 mg ONCE ONE Administration Morphine Sulfate 4 mg 06/30/20 08:27 06/30/20 08:30 Morphine 4mg/Ml Syringe IV 06/30/20 08:28 4 mg ONCE ONE Administration Ondansetron HCl 4 mg 06/30/20 07:29 06/30/20 07:32 Ondansetron 4mg/2ml Vial IV 06/30/20 07:30 4 mg ONCE ONE Administration ORDERS Category Date Time Status Comprehensive Metabolic Panel Stat Lab 06/30/20 07:20 Results Troponin I Stat Lab 06/30/20 07:20 Results - Radiology Data #1 Image(s): Chest, Pelvis Image Reviewed: Yes I reviewed the patient's radiology image Chest: Pleural/pulmonary and bony metastatic disease. No fractures or pneumothorax seen. Pelvis: Bony metastatic disease. No fractures or dislocations seen. - CT Data CT Scan: Head, C-Spine, T-Spine Time Received: 08:[address] Reviewed: Yes: I discussed the CT results w/
--- NOTE | 2020-06-30 08:11 | PC.NURSE ---
Pt urinated in urinal at this time.
--- NOTE | 2020-06-30 08:13 | PC.NURSE ---
Dr mendez speaking with Dr Bolton at this time
--- NOTE | 2020-06-30 08:16 | PC.NURSE ---
Dr Bolton at bedside
--- NOTE | 2020-06-30 08:23 | PC.NURSE ---
Calling [facility] at this time.
--- NOTE | 2020-06-30 08:27 | ECG_ITS ---
APPROVED REPORT Exam: Resting ECG HR:79 bpm ECG Measurements Heart Rate 79 AXES VT 188 P 76 QRSd 110 QRS 6 QT 374 T 72 QTc 428 Conclusion Normal sinus rhythm Normal ECG Electronically signed by : Francois Napoles, 07/02/2020 13:53:56
--- NOTE | 2020-06-30 08:28 | PC.NURSE ---
Dr Bolton speaking with Dr Zamudio at this time.
[2020-06-30 08:29] VITALS: BP 138/81; PULSE 78; O2SAT 97
[2020-06-30 08:34] LABS: Basophils % 0.5 % (0.1-2.0); Eosinophils % 1.5 % (0.1-12.0); Hemoglobin 11.1 g/dL (14.1-18.0); Lymphocytes # 0.4 K/mm3 (0.7-4.5); Lymphocytes % 14.3 % (10-50); Mean Corpuscular HGB Conc 31.6 g/dL (31.8-35.4); Mean Corpuscular Hemoglobin 30.4 pg (27.0-31.2); Monocytes # 0.2 K/mm3 (0.1-1.0); Monocytes % 7.7 % (1.7-9.3); Neutrophils # 2.2 K/mm3 (1.8-7.8); Neutrophils % 76.1 % (37.0-80.0); Platelet Count 211 K/mm3 (142-424); Red Blood Count 3.64 M/mm3 (4.60-6.20); White Blood Count 2.8 K/mm3 (4.8-10.8)
--- NOTE | 2020-06-30 08:35 | PC.NURSE ---
notified [facility] of transfer to ER states they will have a truck up here as soon as one is available they currently have a truck out on a run
--- NOTE | 2020-06-30 08:41 | PC.NURSE ---
Calling Dr Aguilar at this time. Dr Bolton wants to update him on pt.
[2020-06-30 08:51] LABS: Chloride 98 mmol/L (98-107); Potassium 4.1 mmoL/L (3.5-5.1); Sodium 136 mmol/L (136-145)
[2020-06-30 08:53] LABS: Alanine Aminotransferase 11 U/L (12-78); Blood Urea Nitrogen 11 mg/dl (9-20); Creatinine Clearance Estimated 58 mL/min (50-200); Estimated Glomerular Filt Rate 213 ml/min (>60); GFR (African American) 258 ML/MIN (>60)
[2020-06-30 08:54] LABS: Albumin Level 3.7 g/dl (3.5-5.0); Albumin/Globulin Ratio 1.3 (1.1-1.8); Alkaline Phosphatase 215 U/L (38-126); Anion Gap 13.1 mEq/L (5-15); Aspartate Amino Transferase 38 U/L (17-59); Bilirubin,Total 0.5 mg/dl (0.2-1.3); Calcium 9.4 mg/dl (8.4-10.2); Carbon Dioxide 29 mmol/L (22.0-30.0); Globulin 2.9 g/dL (1.3-3.2); Glucose 99 mg/dl (74-100); Total Protein,Serum 6.6 g/dl (6.3-8.2)
[2020-06-30 09:00] VITALS: BP 123/73; PULSE 82; O2SAT 93
[2020-06-30 09:07] LABS: Troponin I < 0.01 ng/ml (0.00-0.034)
[2020-06-30 09:30] VITALS: BP 116/69; PULSE 80; RESP 17; TEMP 36.5; O2SAT 95
== END 2020-06-30 09:45 | disposition short-term general hospital (02) ==
PROVIDERS: Emergency Provider Emergency Medicine; PCP Family Medicine
DX: C61 Malignant neoplasm of prostate (principal); C79.51 Secondary malignant neoplasm of bone; S06.6X0A Traumatic subarachnoid hemorrhage without loss of consciousness, initial encounter; W18.39XA Other fall on same level, initial encounter; Y92.019 Unspecified place in single-family (private) house as the place of occurrence of the external cause
CPT/HCPCS: 70450; 71045; 72125; 72128; 72170; 80053; 84484; 85025; 93005; 96365; 96375; 96376; 99284; J2405